=== PATIENT | female | born 1945 | race Caucasian/White ===

== ENCOUNTER 2017-08-05 14:20 | Inpatient (IN) | payer OTHER, MEDICARE ==
[~2017-08-05] VITALS: Ht 167.6 cm; Wt 86.7 kg
[~2017-08-05 14:20] MED LIST: ACET325 PO; CIPR500T2 PO; GABA300C3 PO; GEMF600T PO; HYDRA25 PO; LACT PO; LISI-586 PO; LOPE2 PO; MOBI15TA PO; POTA10TA2 PO
[2017-08-05 14:39] VITALS: BP 144/78; PULSE 70; RESP 20; TEMP 98.1; O2SAT 95
[2017-08-05 14:42] VITALS: BP 144/78; PULSE 70; RESP 20; TEMP 98.1; O2SAT 95
[2017-08-05 14:44] VITALS: BP_SYST 135; BP_SYST 144; BP_DIAS 78; BP_DIAS 83; PULSE 70; RESP 20; TEMP 98.1; O2SAT 95
[2017-08-05] MEDS ORDERED: SODIUM CHLORIDE 0.9% FLUSH 10 ML FLUSH IVF PRN (14:45)
[2017-08-05 15:35] LABS: INTERNATIONAL NORMALIZED RATIO 1.1 RATIO; PROTHROMBIN TIME - PATIENT 11.7 SEC (9.8-11.6)
[2017-08-05 15:40] LABS: BICARBONATE 28.1 MEQ/L (21.0-32.0); POTASSIUM 4.6 MEQ/L (3.5-5.1)
--- NOTE | 2017-08-05 15:53 | RADRPT ---
EXAM DATE/TIME: 08/05/2017 15:16 [facility] COMPARISON: No previous studies available for comparison. INDICATIONS : Left hip pain post fall today. MEDICAL HISTORY : hospice patient no other history available SURGICAL HISTORY : unobtainable ENCOUNTER: Initial ACUITY: 1 day PAIN SCORE: 10/10 LOCATION: Left hip FINDINGS: There is a subtle lucency in the left femoral neck without definite cortical step-off. The crosstable lateral exam does not adequately visualize the femoral neck region due to body habitus. Remaining os seous structures appear intact. Mild degenerative changes about the hips which are otherwise maintain ed. SI joints and pubic symphysis are intact. Surgical clips are seen in the mid pelvis. Soft tissues are otherwise unremarkable. CONCLUSION: 1. Subtle lucency without definite cortical step-off in the left femoral neck may be projectional alt katie a nondisplaced transcervical left femoral neck fracture cannot be excluded. This is inadequatel y visualized and therefore can't be confirmed on the crosstable lateral view. Consider frog-leg view for better visualization. Alternatively, CT examination may be performed as clinically warranted. Arnold Ledesma MD on August 05, 2017 at 15:44 Board Certified Radiologist. This report was verified electronically.
--- NOTE | 2017-08-05 15:54 | RADRPT ---
EXAM DATE/TIME: 08/05/2017 15:25 [facility] COMPARISON: CHEST SINGLE AP, March 12, 2015, 2:41. INDICATIONS : Patient fell today , pain in left hip . MEDICAL HISTORY : hospice patient no other history SURGICAL HISTORY : unobtainable ENCOUNTER: Initial ACUITY: 1 day PAIN SCORE: 3/10 LOCATION: Bilateral upper chest FINDINGS: Mild diffuse interstitial prominence similar to prior exam. No pneumothorax. No focal minimal opacity , left apical cap or effusion. Cardiomediastinal contours are stable. Old right rib fractures are not ed. Osseous structures are otherwise grossly intact. CONCLUSION: 1. Negative portable chest status post trauma. Arnold Ledesma MD on August 05, 2017 at 15:51 Board Certified Radiologist. This report was verified electronically.
--- NOTE | 2017-08-05 16:26 | RADRPT ---
EXAM DATE/TIME: 08/05/2017 15:48 [facility] COMPARISON: No previous studies available for comparison. INDICATIONS : Fall today evaluate fracture RADIATION DOSE: 63.50 CTDIvol (mGy) MEDICAL HISTORY : Cerebrovascular disease. Hypertension. Trigeminal neuralgia SURGICAL HISTORY : None. ENCOUNTER: Initial ACUITY: 1 day PAIN SCALE: 4/10 LOCATION: Left Hip TECHNIQUE: Volumetric scanning of the hip was performed. Using automated exposure control and ad justment of the mA and/or kV according to patient size, radiation dose was kept as low as reasonably achievable to obtain optimal diagnostic quality images. DICOM format image data is available electro nically for review and comparison. FINDINGS: BONES: Examination is abnormal. There is an impacted transcervical femoral neck fracture with com minuted nondisplaced fractures extending through the lesser and greater trochanters. JOINTS: Anatomic alignment of the hip joints bilaterally. Peak symphysis and SI joints are intact . SOFT TISSUES: Bladder is mildly distended and unremarkable. Uterus is unremarkable. Precise porti ons of bowel are within normal limits. No gross free air or pneumatosis. No significant free fluid or drainable fluid collection in the pelvis. Anterior pelvic surgical alix. CONCLUSION: 1. Impacted transcervical left femoral neck fracture with associated slightly comminuted nondisplaced trochanteric fractures. Arnold Ledesma MD on August 05, 2017 at 16:19 Board Certified Radiologist. This report was verified electronically.
[2017-08-05 16:27] LABS: AUTOMATED NEUTROPHIL # 10.2 TH/MM3 (1.8-7.7); BASOPHIL # 0.1 TH/MM3 (0-0.2); BASOPHIL % 0.4 % (0.0-2.0); EOSINOPHIL % 0.2 % (0.0-4.0); HEMATOCRIT 43.1 % (35.0-46.0); HEMO FLAGS DIFF FINAL; LYMPH % 8.5 % (9.0-44.0); MEAN CELL VOLUME 96.9 FL (80.0-100.0); MEAN CORPUSCULAR HEMOGLOBIN 32.5 PG (27.0-34.0); MEAN CORPUSCULAR HGB CONC 33.6 % (32.0-36.0); MONO % 4.8 % (0.0-8.0); NEUT % 86.1 % (16.0-70.0); PLATELET COUNT 165 TH/MM3 (150-450); RED BLOOD COUNT 4.45 MIL/MM3 (4.00-5.30); RED CELL DISTRIBUTION WIDTH 13.6 % (11.6-17.2); WHITE BLOOD COUNT 11.9 TH/MM3 (4.0-11.0)
--- NOTE | 2017-08-05 16:29 | RADRPT ---
EXAM DATE/TIME: 08/05/2017 15:43 [facility] COMPARISON: CT BRAIN W/O CONTRAST, March 10, 2015, 12:48. INDICATIONS : Fall today RADIATION DOSE: 69.15 CTDIvol (mGy) MEDICAL HISTORY : Cerebrovascular disease. Hypertension. Trigeminal neuralgia SURGICAL HISTORY : None. ENCOUNTER: Initial ACUITY: 1 day PAIN SCALE: 4/10 LOCATION: cranial TECHNIQUE: Multiple contiguous axial images were obtained of the head. Using automated exposure control and adj ustment of the mA and/or kV according to patient size, radiation dose was kept as low as reasonably a chievable to obtain optimal diagnostic quality images. DICOM format image data is available electro nically for review and comparison. FINDINGS: CEREBRUM: Moderate diffuse cerebral atrophy. Moderate periventricular and scattered white matter hypodensities progressed from prior examination and consistent with small vessel ischemic white matter demyelinatio n. The ventricles are normal for degree of atrophy. No evidence of midline shift, mass lesion, hemor rhage or acute infarction. No extra-axial fluid collections are seen. POSTERIOR FOSSA: The cerebellum and brainstem are intact. The 4th ventricle is midline. The cerebellopontine angle i s unremarkable. EXTRACRANIAL: The visualized portion of the orbits is intact. SKULL: The calvaria is intact. No evidence of skull fracture. CONCLUSION: 1. Senescent changes with progressive small vessel white matter ischemic demyelination. 2. No acute intracranial abnormality. Arnold Ledesma MD on August 05, 2017 at 16:24 Board Certified Radiologist. This report was verified electronically.
--- NOTE | 2017-08-05 16:55 | PD ---
HPI Chief Complaint: Fall Time Seen by Provider: 14:37 Travel History International Travel<30 days: No Contact w/Intl Traveler<30days: No Traveled to known affect area: No History of Present Illness HPI 72-year-old female came to the emergency room with history of a fall while she was trying to maneuver herself into the refer to later with a walker. Patient says this happened couple hours prior to coming to the emergency room. He is unable to get up. 911 was called and when EMS arrived patient was complaining of left hip pain. She has been unable to move her left leg because of the pain. Patient says she also hit her head when she fell. However she is awake and answering questions appropriately. Patient says she's hospice because she is dying but does not have history of cancer. She says she has history of multiple medical illness. Her vital signs were otherwise within normal limit. Patient says she uses a walker because she has a bad left knee. However because of her multiple medical conditions she has been told she is not a candidate for knee replacement surgery. [facility] Past Medical History Narrative Medical List of her past medical, surgical, social and family history is reviewed from the nursing note. Cerebrovascular Accident: Yes Hypertension: Yes Neurologic: Yes (TRIGEMINAL NEURALGIA) Respiratory: Yes Social History Alcohol Use: No Tobacco Use: Yes ("CHAIN SMOKER") Substance Use: No Allergies-Medications (Allergen,Severity, Reaction): Coded Allergies: oxytocin (Unverified Allergy, Unknown, 04/22/17) Comments List of her allergies reviewed from the nursing note. Reported Meds & Prescriptions Reported Meds & Active Scripts Active Narrative Medication List of her home medications reviewed from the nursing note. Review of Systems Except as stated in HPI: all other systems reviewed are Neg Physical Exam Narrative GENERAL: Awake, alert, elderly, looks older than her age, moderate distress SKIN: Focused skin assessment warm/dry. HEAD: Atraumatic. Normocephalic. EYES: Pupils equal and round. No scleral icterus. No injection or drainage. ENT: No nasal bleeding or discharge. Mucous membranes pink and moist. NECK: Trachea midline. No JVD. CARDIOVASCULAR: Regular rate and rhythm. No murmur appreciated. RESPIRATORY: No accessory muscle use. Clear to auscultation. Breath sounds equal bilaterally. GASTROINTESTINAL: Abdomen soft, non-tender, nondistended. Hepatic and splenic margins not palpable. MUSCULOSKELETAL: Left leg shortened and internally rotated. No clubbing. No cyanosis. No edema. Distal neurovascular is intact NEUROLOGICAL: Awake and alert. No obvious cranial nerve deficits. Motor grossly within normal limits. Normal speech. PSYCHIATRIC: Appropriate mood and affect; insight and judgment normal. Data Data Last Documented VS Orders Orders Electrocardiogram (08/05/17 14:37) Basic Metabolic Panel (Bmp) (08/05/17 14:37) Complete Blood Count With Diff (08/05/17 14:37) Prothrombin Time / Inr (Pt) (08/05/17 14:37) Chest, Single Ap (08/05/17 14:37) Ecg Monitoring (08/05/17 14:37) Bilateral Bp Monitoring (08/05/17 14:37) Iv Access Insert/Monitor (08/05/17 14:37) Oximetry (08/05/17 14:37) Oxygen Administration (08/05/17 14:37) Sodium Chloride 0.9% Flush (Ns Flush) (08/05/17 14:45) Hip, Uni(Ap&Lat) W Ap Pelvis (08/05/17 ) Ct Brain W/O Iv Contrast(Rout) (08/05/17 ) Ct Hip W/O Contrast (08/05/17 ) Admit Order (Ed Use Only) (08/05/17 17:39) Labs Laboratory Tests Test 08/05/17 15:00 08/05/17 16:10 Prothrombin Time 11.7 SEC Prothromb Time International Ratio 1.1 RATIO Blood Urea Nitrogen 17 MG/DL Creatinine 0.79 MG/DL Random Glucose 111 MG/DL Calcium Level 9.2 MG/DL Sodium Level 139 MEQ/L Potassium Level 4.6 MEQ/L Chloride Level 103 MEQ/L Carbon Dioxide Level 28.1 MEQ/L Anion Gap 8 MEQ/L Estimat Glomerular Filtration Rate 72 ML/MIN White Blood Count 11.9 TH/MM3 Red Blood Count 4.45 MIL/MM3 Hemoglobin 14.5 GM/DL Hematocrit 43.1 % Mean Corpuscular Volume 96.9 FL Mean Corpuscular Hemoglobin 32.5 PG Mean Corpuscular Hemoglobin Concent 33.6 % Red Cell Distribution Width 13.6 % Platelet Count 165 TH/MM3 Mean Platelet Volume 8.4 FL Neutrophils (%) (Auto) 86.1 % Lymphocytes (%) (Auto) 8.5 % Monocytes (%) (Auto) 4.8 % Eosinophils (%) (Auto) 0.2 % Basophils (%) (Auto) 0.4 % Neutrophils # (Auto) 10.2 TH/MM3 Lymphocytes # (Auto) 1.0 TH/MM3 Monocytes # (Auto) 0.6 TH/MM3 Eosinophils # (Auto) 0.0 TH/MM3 Basophils # (Auto) 0.1 TH/MM3 CBC Comment DIFF FINAL Differential Comment MDM Medical Decision Making Medical Screen Exam Complete: Yes Emergency Medical Condition: Yes Medical Record Reviewed: Yes Interpretation(s) Twelve-lead EKG was reviewed by me. Normal sinus rhythm, normal axis, nonspecific ST-T wave changes. Heart rate of 67 bpm. Differential Diagnosis Hip dislocation, hip fracture, intracranial bleed Narrative Course 4:50 PM awaiting for the blood test result and the x-ray. 5:30 PM x-ray had questionable fracture as per the radiologist recommended a CT. The of the hip showed impacted femoral neck fracture. Head CT was negative for any intracranial bleed. Patient will be admitted to the hospitalist. Spoke with Dr. Carl from [facility] and consulted him. Procedures EKG Prior to Arrival: No Physician Communication Physician Communication Dr. Carl Diagnosis Primary Impression: Femoral neck fracture Qualified Codes: S72.002A - Fracture of unspecified part of neck of left femur , initial encounter for closed fracture Additional Impression: Fall Qualified Codes: W19.XXXA - Unspecified fall, initial encounter Admitting Information Admitting Physician Requests: Admit Scripts Oxycodone HCl/Acetaminophen (Oxycodone-Acetaminophen 5-325) 5 Mg-325 Mg Tablet 1 TAB PO Q4HR Y for PAIN 1 TO 10 AND/OR AGITATION, #12 TAB 0 Refills Prov: Tyrell Alegre MD 08/08/17 Rivaroxaban (Xarelto) 10 Mg Tab 10 MG PO Q24H for Prevent Blood Clot for 20 Days, #20 TAB Prov: Belinda Miner 08/08/17 Chris Jules MD Aug 05, 2017 16:55
[2017-08-05] MEDS ORDERED: SODIUM CHLORIDE 0.9% FLUSH 10 ML FLUSH IV FLUSH PRN (17:45)
[2017-08-05] MEDS ORDERED: NALOXONE HCL 0.4 MG/ML AMP IV PUSH PRN (17:45)
--- NOTE | 2017-08-05 17:46 | HHI.HP ---
[facility] Service [facility] Primary Care Physician Josh Britt M.D. Admission Diagnosis hip fracture Diagnoses: Travel History International Travel<30 Days: No Contact w/Intl Traveler <30 Da: No Traveled to Known Affected Are: No History of Present Illness History from patient, ER physician communication, and review of medical records. Patient is an elderly lady. She is somewhat of a poor historian and also she does know her medical history. She seems to be in more of pain and distress which was mostly limiting her history. She reports that she fell down at home. She states she lives alone. Hospice nurse comes and see her at least once a week. She also does get other types of help at home although she is not able to specify what type particularly. She reports that she walks with her walker all the time because of her left knee pain. She today walked with her walker to words her refrigerator and try to get something out of the refrigerator. She believes in so doing, she lost her balance and fell. She states she fells backwards. She thinks she hit her head. She denies being on blood thinners. She states she hit hard and she has landed on her left hip as well. She states she laid there for about 2 hours. When her nurse came to visit the house, she screamed for help and ambulance was therefore called. Patient reports she is on home oxygen per prescription. But she states she doesn't take at all She reports that she has stage IV COPD. She thinks this was the reason why she is on hospice. She reports that she wondered surgery for her left knee pain but she was told she would not survive anesthesia because of her COPD. At present, she does want surgery for her left hip fracture. During my conversation with her, patient tells me that she is a DNR and she wants to make sure that we honor this. She does have a daughter in town. Apart from the above, patient denies any recent fever/nausea/vomiting/diarrhea/ urinary burning or pain on urination. She denies any hematemesis/hematochezia/melena/hematuria. She denies any episodes of chest pain/palpitations/dizziness/syncopal episodes. She reports chronic dyspnea on exertion and chronic left knee pain. Review of Systems Except as stated in HPI: all other systems reviewed are Neg Past Family Social History Past Medical History Stage IV COPD. Reports she was prescribed home oxygen but that she is not compliant with it. Chronic peripheral edema per patient. She states she is seeing a heart doctor because of this. Likely she has CHF. History of CVA. Reports her residual is that she keeps dropping things from her left hand at some times. Chronic tobacco abuse. Reports she smokes way more than a pack a day at present. History of trigeminal neuralgia Hypertension Hyperlipidemia Past Surgical History Not able to recall all the surgeries. States she had many. However she does remember she had cholecystectomy and possibly appendectomy. Reported Medications Patient thinks that she might have a list of her medications in her purse. But later reported to call hospice nurse to confirm. Allergies: Coded Allergies: oxytocin (Unverified Allergy, Unknown, 04/22/17) Family History Denies any family history of any medical conditions. Social History States she currently smokes way more than a pack a day. Denies any alcohol abuse or drug abuse. Lives by herself. Apparently she is still driving. Physical Exam Vital Signs Vital Signs Date Time Temp Pulse Resp B/P (MAP) Pulse Ox O2 Delivery O2 Flow Rate FiO2 08/05/17 14:44 98.1 70 20 144/78 (100) 95 Room Air 2.00 135/83 (100) 08/05/17 14:42 98.1 70 20 144/78 (100) 95 Nasal Cannula 2.00 08/05/17 14:42 98.1 70 20 144/78 (100) 95 Nasal Cannula 2.00 08/05/17 14:42 Room Air 08/05/17 14:41 70 20 95 Nasal Cannula 2.00 08/05/17 14:39 98.1 70 20 144/78 (100) 95 Physical Exam GENERAL: This is a well-nourished, well-developed patient, in moderate distress from pain. Also looks to be dyspneic on conversation. SKIN: No rashes, ecchymoses or lesions. Cool and dry. HEAD: Atraumatic. Normocephalic. No temporal or scalp tenderness. EYES: No scleral icterus. No injection or drainage. ENT: Nose without bleeding, purulent drainage or septal hematoma.. Airway patent. NECK: Trachea midline. No JVD CARDIOVASCULAR: Regular rate and rhythm without murmurs, gallops, or rubs. RESPIRATORY: Decreased air entry bilaterally. Poor inspiratory effort. GASTROINTESTINAL: Abdomen soft, non-tender, nondistended. No guarding. MUSCULOSKELETAL: Extremities without clubbing, cyanosis, or edema. No calf tenderness. Left lower extremity shorter than the right with mild internal rotation NEUROLOGICAL: Awake and alert. Normal speech. Laboratory Laboratory Tests Test 08/05/17 15:00 08/05/17 16:10 Prothrombin Time 11.7 Prothromb Time International Ratio 1.1 Blood Urea Nitrogen 17 Creatinine 0.79 Random Glucose 111 Calcium Level 9.2 Sodium Level 139 Potassium Level 4.6 Chloride Level 103 Carbon Dioxide Level 28.1 Anion Gap 8 Estimat Glomerular Filtration Rate 72 White Blood Count 11.9 Red Blood Count 4.45 Hemoglobin 14.5 Hematocrit 43.1 Mean Corpuscular Volume 96.9 Mean Corpuscular Hemoglobin 32.5 Mean Corpuscular Hemoglobin Concent 33.6 Red Cell Distribution Width 13.6 Platelet Count 165 Mean Platelet Volume 8.4 Neutrophils (%) (Auto) 86.1 Lymphocytes (%) (Auto) 8.5 Monocytes (%) (Auto) 4.8 Eosinophils (%) (Auto) 0.2 Basophils (%) (Auto) 0.4 Neutrophils # (Auto) 10.2 Lymphocytes # (Auto) 1.0 Monocytes # (Auto) 0.6 Eosinophils # (Auto) 0.0 Basophils # (Auto) 0.1 CBC Comment DIFF FINAL Differential Comment Result Diagram: 08/05/17 1610 08/05/17 1500 Imaging Last 48 hours Impressions Chest X-Ray 08/05/17 1437 Signed Impressions: Service Date/Time: Saturday, August 05, 2017 15:25 - CONCLUSION: 1. Negative portable chest status post trauma. Arnold Ledesma MD Lower Extremity CT 08/05/17 0000 Signed Impressions: Service Date/Time: Saturday, August 05, 2017 15:48 - CONCLUSION: 1. Impacted transcervical left femoral neck fracture with associated slightly comminuted nondisplaced trochanteric fractures. Arnold Ledesma MD Hip and Pelvis X-Ray 08/05/17 0000 Signed Impressions: Service Date/Time: Saturday, August 05, 2017 15:16 - CONCLUSION: 1. Subtle lucency without definite cortical step-off in the left femoral neck may be projectional although a nondisplaced transcervical left femoral neck fracture cannot be excluded. This is inadequately visualized and therefore can't be confirmed on the crosstable lateral view. Consider frog-leg view for better visualization. Alternatively, CT examination may be performed as clinically warranted. Arnold Ledesma MD Head CT 08/05/17 0000 Signed Impressions: Service Date/Time: Saturday, August 05, 2017 15:43 - CONCLUSION: 1. Senescent changes with progressive small vessel white matter ischemic demyelination. 2. No acute intracranial abnormality. MD Carmel Austin VTE Risk Assessment Carmel VTE Risk Assessment: Mod/High Risk (score >= 2) Caprini Risk Assessment Model Point Value = 1 Point Value = 2 Point Value = 3 Point Value = 5 Age 41-60 Minor surgery BMI > 25 kg/m2 Swollen legs Varicose veins or History of unexplained or recurrent spontaneous Oral contraceptives or hormone replacement Sepsis (< 1 month) Serious lung disease, including pneumonia (< 1 month) Abnormal pulmonary function Acute myocardial infarction Congestive heart failure (< 1 month) History of inflammatory bowel disease Medical patient at bed rest Age 61-74 Arthroscopic surgery Major open surgery (> 45 min) Laparoscopic surgery (> 45 min) Malignancy Confined to bed (> 72 hours) Immobilizing plaster cast Central venous access Age >= 75 History of VTE Family history of VTE Factor V Leiden Prothrombin [id number] Lupus anticoagulant Anticardiolipin antibodies Elevated serum homocysteine Heparin-induced thrombocytopenia Other congenital or acquired thrombophilia Stroke (< 1 month) Elective arthroplasty Hip, pelvis, or leg fracture Acute spinal cord injury (< 1 month) Prophylaxis Regimen Total Risk Factor Score Risk Level Prophylaxis Regimen 0-1 Low Early ambulation 2 Moderate Order ONE of the following: *Sequential Compression Device (SCD) *Heparin 5000 units SQ BID 3-4 Higher Order ONE of the following medications: *Heparin 5000 units SQ TID *Enoxaparin/Lovenox 40 mg SQ daily (WT < 150 kg, CrCl > 30 mL/min) *Enoxaparin/Lovenox 30 mg SQ daily (WT < 150 kg, CrCl > 10-29 mL/min) *Enoxaparin/Lovenox 30 mg SQ BID (WT < 150 kg, CrCl > 30 mL/min) AND/OR *Sequential Compression Device (SCD) 5 or more Highest Order ONE of the following medications: *Heparin 5000 units SQ TID (Preferred with Epidurals) *Enoxaparin/Lovenox 40 mg SQ daily (WT < 150 kg, CrCl > 30 mL/min) *Enoxaparin/Lovenox 30 mg SQ daily (WT < 150 kg, CrCl > 10-29 mL/min) *Enoxaparin/Lovenox 30 mg SQ BID (WT < 150 kg, CrCl > 30 mL/min) AND *Sequential Compression Device (SCD) Assessment and Plan Assessment and Plan Impression: Status post fall Left femoral neck fracture secondary to fall Leukocytosis with left shift likely secondary to acute stress Comorbid conditions: Stage IV COPD. Reports she was prescribed home oxygen but that she is not compliant with it. Chronic peripheral edema per patient. She states she is seeing a heart doctor because of this. Likely she has CHF. History of CVA. Reports her residual is that she keeps dropping things from her left hand at some times. Chronic tobacco abuse. Reports she smokes way more than a pack a day at present. History of trigeminal neuralgia Hypertension Hyperlipidemia Plan: Patient's case was discussed with orthopedics DrArnol by ER physician. We'll keep patient nothing by mouth after midnight. Feed patient now. Pain control with morphine 2 g IV every 3 hours when necessary for pain greater than 5. To obtain patient's med reconciliation from hospice service. Orders have been written for nursing staff to do so. DVT prophylaxis with SCD for now. Chemical prophylaxis postoperatively. GI prophylaxis with ranitidine. Discussed Condition With patient, ER physician, nursing staff Physician Certification 2 Midnight Certification Type: Admission for Inpatient Services Order for Inpatient Services The services are ordered in accordance with Medicare regulations or non- Medicare payer requirements, as applicable. In the case of services not specified as inpatient-only, they are appropriately provided as inpatient services in accordance with the 2-midnight benchmark. Estimated LOS (days): 2 days is the estimated time the patient will need to remain in the hospital, assuming treatment plan goals are met and no additional complications. Post-Hospital Plan: Home Khadijah Vo MD Aug 05, 2017 17:46
[2017-08-05] MEDS ORDERED: ONDANSETRON HCL 4 MG/2 ML VIAL IV PUSH PRN (18:00)
[2017-08-05 18:32] VITALS: BP 143/69
[2017-08-05 19:22] VITALS: BP 174/86; PULSE 93; RESP 20; TEMP 98.5; O2SAT 94
[2017-08-05] MEDS: FAMOTIDINE 20 MG TAB PO SCH (21:15)
[2017-08-05] MEDS: MORPHINE SULFATE 2 MG/ML INJ IV PUSH PRN (21:17)
[2017-08-05] MEDS: SODIUM CHLORIDE 0.9% FLUSH 10 ML FLUSH IV FLUSH SCH (21:19)
--- NOTE | 2017-08-05 22:31 | PD.CONS ---
cc: Ras Carl MD [facility] Service Orthopedic Surgeons Consult Requested By Dr. Vo Reason for Consult Evaluation of left hip fracture Primary Care Physician Josh Britt M.D. Admission Diagnosis hip fracture Diagnoses: (1) Intertrochanteric fracture of left femur Diagnosis: Principal (2) COPD (chronic obstructive pulmonary disease) (3) History of CVA (cerebrovascular accident) (4) Tobacco dependence Chief Complaint: Left hip pain History of Present Illness 72-year-old female came to the emergency room with history of a fall while she was trying to maneuver herself into the refer to later with a walker. Patient says this happened couple hours prior to coming to the emergency room. He is unable to get up. 911 was called and when EMS arrived patient was complaining of left hip pain. She has been unable to move her left leg because of the pain. Patient says she also hit her head when she fell. However she is awake and answering questions appropriately. She is a poor historian and "can't remember" all of her medical illnesses or surgeries. Patient says she's hospice because she is dying but does not have history of cancer. She says she has history of multiple medical illness. Her vital signs were otherwise within normal limit. Patient says she uses a walker because she has a bad left knee. However because of her multiple medical conditions she has been told she is not a candidate for knee replacement surgery. The patient denies other extremity injury at the time of her fall. X-rays and a CT scan were completed which revealed a basicervical fracture of the proximal femur with extension into the greater and lesser trochanters. Orthopedic consultation was therefore requested. Review of Systems Reviewed and well outlined in the medical record Past Family Social History Past Medical History Stage IV COPD. Reports she was prescribed home oxygen but that she is not compliant with it. Chronic peripheral edema per patient. She states she is seeing a heart doctor because of this. Likely she has CHF. History of CVA. Reports her residual is that she keeps dropping things from her left hand at some times. Chronic tobacco abuse. Reports she smokes way more than a pack a day at present. History of trigeminal neuralgia Hypertension Hyperlipidemia Past Surgical History Not able to recall all the surgeries. States she had many. However she does remember she had cholecystectomy and possibly appendectomy. Allergies: Coded Allergies: oxytocin (Unverified Allergy, Unknown, 04/22/17) Active Ordered Medications Current Medications Medications (Trade) Dose Ordered Sig/Tatiana Route Start Time Stop Time Status Last Admin (NS Flush) 2 ml UNSCH PRN IV FLUSH 08/05/17 17:45 (NS Flush) 2 ml BID IV FLUSH 08/05/17 21:00 08/05/17 21:19 (Narcan Inj) 0.4 mg UNSCH PRN IV PUSH 08/05/17 17:45 (Morphine Inj) 2 mg Q3H PRN IV PUSH 08/05/17 18:00 08/05/17 21:17 (Zofran Inj) 4 mg Q6HR PRN IV PUSH 08/05/17 18:00 (Pepcid) 20 mg Q12HR PO 08/05/17 21:00 08/05/17 21:15 Reported Meds & Active Scripts Active Active Prescriptions or Reported Medications Unobtainable Family History Denies any family history of any medical conditions. Social History States she currently smokes way more than a pack a day. Denies any alcohol abuse or drug abuse. Lives by herself. Apparently she is still driving. Physical Exam Vital Signs Vital Signs Date Time Temp Pulse Resp B/P (MAP) Pulse Ox O2 Delivery O2 Flow Rate FiO2 08/05/17 19:22 98.5 93 20 174/86 (115) 94 08/05/17 18:32 84 20 143/69 (93) 94 Nasal Cannula 2.00 08/05/17 14:44 98.1 70 20 144/78 (100) 95 Room Air 2.00 135/83 (100) 08/05/17 14:42 98.1 70 20 144/78 (100) 95 Nasal Cannula 2.00 08/05/17 14:42 98.1 70 20 144/78 (100) 95 Nasal Cannula 2.00 08/05/17 14:42 Room Air 08/05/17 14:41 70 20 95 Nasal Cannula 2.00 08/05/17 14:39 98.1 70 20 144/78 (100) 95 Physical Exam The patient is awake and alert and answers questions properly. She complains of pain in the left hip with any movement. There is no overlying skin change. There is mild swelling. She holds the left lower extremity in a slightly flexed and internal rotated position. It is shortened. She is able to move her ankle and toes freely and relates normal sensation. She has good pulses distally. Laboratory Laboratory Tests Test 08/05/17 15:00 08/05/17 16:10 Prothrombin Time 11.7 Prothromb Time International Ratio 1.1 Blood Urea Nitrogen 17 Creatinine 0.79 Random Glucose 111 Calcium Level 9.2 Sodium Level 139 Potassium Level 4.6 Chloride Level 103 Carbon Dioxide Level 28.1 Anion Gap 8 Estimat Glomerular Filtration Rate 72 White Blood Count 11.9 Red Blood Count 4.45 Hemoglobin 14.5 Hematocrit 43.1 Mean Corpuscular Volume 96.9 Mean Corpuscular Hemoglobin 32.5 Mean Corpuscular Hemoglobin Concent 33.6 Red Cell Distribution Width 13.6 Platelet Count 165 Mean Platelet Volume 8.4 Neutrophils (%) (Auto) 86.1 Lymphocytes (%) (Auto) 8.5 Monocytes (%) (Auto) 4.8 Eosinophils (%) (Auto) 0.2 Basophils (%) (Auto) 0.4 Neutrophils # (Auto) 10.2 Lymphocytes # (Auto) 1.0 Monocytes # (Auto) 0.6 Eosinophils # (Auto) 0.0 Basophils # (Auto) 0.1 CBC Comment DIFF FINAL Differential Comment Result Diagram: 08/05/17 1610 08/05/17 1500 Imaging Last 48 hours Impressions Chest X-Ray 08/05/17 1437 Signed Impressions: Service Date/Time: Saturday, August 05, 2017 15:25 - CONCLUSION: 1. Negative portable chest status post trauma. Arnold Ledesma MD Lower Extremity CT 08/05/17 0000 Signed Impressions: Service Date/Time: Saturday, August 05, 2017 15:48 - CONCLUSION: 1. Impacted transcervical left femoral neck fracture with associated slightly comminuted nondisplaced trochanteric fractures. Arnold Ledesma MD Hip and Pelvis X-Ray 08/05/17 0000 Signed Impressions: Service Date/Time: Saturday, August 05, 2017 15:16 - CONCLUSION: 1. Subtle lucency without definite cortical step-off in the left femoral neck may be projectional although a nondisplaced transcervical left femoral neck fracture cannot be excluded. This is inadequately visualized and therefore can't be confirmed on the crosstable lateral view. Consider frog-leg view for better visualization. Alternatively, CT examination may be performed as clinically warranted. Arnold Ledesma MD Head CT 08/05/17 0000 Signed Impressions: Service Date/Time: Saturday, August 05, 2017 15:43 - CONCLUSION: 1. Senescent changes with progressive small vessel white matter ischemic demyelination. 2. No acute intracranial abnormality. Arnold Ledesma MD Assessment & Plan Problem List: (1) Intertrochanteric fracture of left femur ICD Codes: S72.142A - Displaced intertrochanteric fracture of left femur, initial encounter for closed fracture (2) COPD (chronic obstructive pulmonary disease) ICD Codes: J44.9 - Chronic obstructive pulmonary disease, unspecified (3) History of CVA (cerebrovascular accident) ICD Codes: Z86.73 - Personal history of transient ischemic attack (TIA), and cerebral infarction without residual deficits (4) Tobacco dependence ICD Codes: F17.200 - Nicotine dependence, unspecified, uncomplicated Assessment and Plan The findings were discussed. The options for treatment both operative and nonoperative were discussed. The patient is at increased risk for surgery based upon her COPD and significant osteoporotic bone as well as the fracture pattern. Given the alternatives, the patient does wish to proceed with surgical management for pain control and mobilization. She understands her DNR status would not be applicable in the operating room setting. The nature of the procedure, the risks, the expected benefits, as well as the postoperative expectations have been discussed with her in detail. In addition, the alternatives to treatment and risk of same were discussed. She acknowledges full understanding and consents to it. Ras Carl MD Aug 05, 2017 22:31
[2017-08-05] MEDS ORDERED: ceFAZolin 2 GM PREMIX 50 ML IV SCH (22:45)
[2017-08-06] VITALS (7 sets, daily range): BP systolic 168–177; BP diastolic 81–96; PULSE 100–111; RESP 17–19; TEMP 96.7–99.6; O2SAT 93–96
[2017-08-06] MEDS: MORPHINE SULFATE 2 MG/ML INJ IV PUSH PRN ×3 (01:46→09:09)
--- NOTE | 2017-08-06 05:17 | EKG ---
Date Performed: 08/05/2017 Time Performed: 14:57:59 PTAGE: 72 years EKG: Baseline artifact present Sinus rhythm INCOMPLETE RIGHT BUNDLE BRANCH BLOCK MINIMAL ST DEPRESSION BORDERLINE ECG Compared to prior electroc ardiogram, rate has increased . PREVIOUS TRACING : 03/11/2015 11.26 DOCTOR: Lloyd Aragon Interpretating Date/Time 08/06/2017 05:17:06
[2017-08-06 07:42] LABS: AUTOMATED NEUTROPHIL # 8.2 TH/MM3 (1.8-7.7); BASOPHIL % 0.3 % (0.0-2.0); EOSINOPHIL % 0.1 % (0.0-4.0); HEMATOCRIT 41.5 % (35.0-46.0); HEMO FLAGS DIFF FINAL; LYMPH % 7.8 % (9.0-44.0); LYMPHOCYTE # 0.8 TH/MM3 (1.0-4.8); MEAN CORPUSCULAR HEMOGLOBIN 33.4 PG (27.0-34.0); MEAN CORPUSCULAR HGB CONC 34.5 % (32.0-36.0); MONO % 7.6 % (0.0-8.0); NEUT % 84.2 % (16.0-70.0); PLATELET COUNT 148 TH/MM3 (150-450); RED BLOOD COUNT 4.28 MIL/MM3 (4.00-5.30); WHITE BLOOD COUNT 9.7 TH/MM3 (4.0-11.0)
[2017-08-06 07:47] LABS: PROTHROMBIN TIME - PATIENT 10.7 SEC (9.8-11.6)
[2017-08-06 08:14] LABS: BICARBONATE 30.1 MEQ/L (21.0-32.0); POTASSIUM 3.5 MEQ/L (3.5-5.1)
[2017-08-06] MEDS: SODIUM CHLORIDE 0.9% FLUSH 10 ML FLUSH IV FLUSH SCH ×2 (09:00→22:08)
[2017-08-06] MEDS: FAMOTIDINE 20 MG TAB PO SCH ×2 (09:12→22:06)
--- NOTE | 2017-08-06 09:19 | HHI.PR ---
Subjective Remarks This is a pleasant 72 y/o Female status post fall at home, she has Hospice Home , left hip pain on Home Oxygen, due to Stage IV COPD, she is DNR, History of CVA, Hypertension, Hyperlipidemia I was called by his Nurse Miss Flores I came to the floor to clear the situation, her Daughter Miss Lorelei Davenport she is concerned about her Mother and not the risk for surgery I talked with her she wants to ask for details about her Surgery this questions are only possible to answer by her Primary surgical Team a call placed to Doctor Meseret, she will discuss details with Orthopedic surgery, discussed with patient because she is able to take her own decision and when discussed with the patient about her Daughter concerns, she say "I will be fine". at this time the patient wants to proceed with Surgery and her POA will help if the patient is not able to take her own decisions. Objective Vital Signs Date Time Temp Pulse Resp B/P (MAP) Pulse Ox O2 Delivery O2 Flow Rate FiO2 08/06/17 07:39 97.7 111 19 172/81 (111) 95 08/06/17 04:25 99.6 105 18 175/95 (121) 94 08/06/17 01:25 99.3 102 17 169/81 (110) 93 08/05/17 19:22 98.5 93 20 174/86 (115) 94 08/05/17 18:32 84 20 143/69 (93) 94 Nasal Cannula 2.00 08/05/17 14:44 98.1 70 20 144/78 (100) 95 Room Air 2.00 135/83 (100) 08/05/17 14:42 98.1 70 20 144/78 (100) 95 Nasal Cannula 2.00 08/05/17 14:42 98.1 70 20 144/78 (100) 95 Nasal Cannula 2.00 08/05/17 14:42 Room Air 08/05/17 14:41 70 20 95 Nasal Cannula 2.00 08/05/17 14:39 98.1 70 20 144/78 (100) 95 I/O 08/05/17 08/05/17 08/05/17 08/06/17 08/06/17 08/06/17 07:00 15:00 23:00 07:00 15:00 23:00 Intake Total 120 ml 0 ml Balance 120 ml 0 ml Intake Oral 120 ml 0 ml # Voids 3 2 # Bowel Movements 0 0 Result Diagram: 08/06/17 0636 08/06/17 0636 Imaging Last Impressions Chest X-Ray 08/05/17 1437 Signed Impressions: Service Date/Time: Saturday, August 05, 2017 15:25 - CONCLUSION: 1. Negative portable chest status post trauma. Arnold Ledesma MD Lower Extremity CT 08/05/17 0000 Signed Impressions: Service Date/Time: Saturday, August 05, 2017 15:48 - CONCLUSION: 1. Impacted transcervical left femoral neck fracture with associated slightly comminuted nondisplaced trochanteric fractures. Arnold Ledesma MD Hip and Pelvis X-Ray 08/05/17 0000 Signed Impressions: Service Date/Time: Saturday, August 05, 2017 15:16 - CONCLUSION: 1. Subtle lucency without definite cortical step-off in the left femoral neck may be projectional although a nondisplaced transcervical left femoral neck fracture cannot be excluded. This is inadequately visualized and therefore can't be confirmed on the crosstable lateral view. Consider frog-leg view for better visualization. Alternatively, CT examination may be performed as clinically warranted. Arnold Ledesma MD Head CT 08/05/17 0000 Signed Impressions: Service Date/Time: Saturday, August 05, 2017 15:43 - CONCLUSION: 1. Senescent changes with progressive small vessel white matter ischemic demyelination. 2. No acute intracranial abnormality. Arnold Ledesma MD Procedures None Other Results Laboratory Tests Test 08/06/17 06:36 White Blood Count 9.7 TH/MM3 Red Blood Count 4.28 MIL/MM3 Hemoglobin 14.3 GM/DL Hematocrit 41.5 % Mean Corpuscular Volume 97.0 FL Mean Corpuscular Hemoglobin 33.4 PG Mean Corpuscular Hemoglobin Concent 34.5 % Red Cell Distribution Width 13.0 % Platelet Count 148 TH/MM3 Mean Platelet Volume 9.0 FL Neutrophils (%) (Auto) 84.2 % Lymphocytes (%) (Auto) 7.8 % Monocytes (%) (Auto) 7.6 % Eosinophils (%) (Auto) 0.1 % Basophils (%) (Auto) 0.3 % Neutrophils # (Auto) 8.2 TH/MM3 Lymphocytes # (Auto) 0.8 TH/MM3 Monocytes # (Auto) 0.7 TH/MM3 Eosinophils # (Auto) 0.0 TH/MM3 Basophils # (Auto) 0.0 TH/MM3 CBC Comment DIFF FINAL Differential Comment Prothrombin Time 10.7 SEC Prothromb Time International Ratio 1.0 RATIO Blood Urea Nitrogen 13 MG/DL Creatinine 0.63 MG/DL Random Glucose 140 MG/DL Calcium Level 8.9 MG/DL Sodium Level 140 MEQ/L Potassium Level 3.5 MEQ/L Chloride Level 103 MEQ/L Carbon Dioxide Level 30.1 MEQ/L Anion Gap 7 MEQ/L Estimat Glomerular Filtration Rate 93 ML/MIN Objective Remarks GENERAL: SKIN: No rashes, ecchymoses or lesions. Cool and dry. HEAD: Atraumatic. Normocephalic. No temporal or scalp tenderness. EYES: No scleral icterus. No injection or drainage. ENT: Nose without bleeding, purulent drainage or septal hematoma.. Airway patent. NECK: Trachea midline. No JVD CARDIOVASCULAR: Regular rate and rhythm without murmurs, gallops, or rubs. RESPIRATORY: Decreased air entry bilaterally. Poor inspiratory effort. GASTROINTESTINAL: Abdomen soft, non-tender, nondistended. No guarding. MUSCULOSKELETAL: Extremities without clubbing, cyanosis, or edema. No calf tenderness. Left lower extremity shorter than the right with mild internal rotation NEUROLOGICAL: Awake and alert. Normal speech. Medications and IVs Current Medications Medications (Trade) Dose Ordered Sig/Tatiana Route Start Time Stop Time Status Last Admin (NS Flush) 2 ml UNSCH PRN IV FLUSH 08/05/17 17:45 (NS Flush) 2 ml BID IV FLUSH 08/05/17 21:00 08/05/17 21:19 (Narcan Inj) 0.4 mg UNSCH PRN IV PUSH 08/05/17 17:45 (Morphine Inj) 2 mg Q3H PRN IV PUSH 08/05/17 18:00 08/06/17 05:45 (Zofran Inj) 4 mg Q6HR PRN IV PUSH 08/05/17 18:00 (Pepcid) 20 mg Q12HR PO 08/05/17 21:00 08/05/17 21:15 Cefazolin Sodium/ Dextrose 50 ml @ 100 mls/hr PAINT PROCESS ENGINEER IV 08/05/17 22:45 08/08/17 22:44 A/P Assessment and Plan 1. Status post Fall 2. Left Femoral Neck Fracture secondary to fall 3. Leukocytosis with left shift likely reactive 4. Stage IV COPD on home oxygen 5. CVA by history 6. Chronic Tobacco dependence more than one pack daily strongly recommended to stop smoking 7. Hypertension controlled. 8. Hyperlipidemia to continue home medicines. May need Intensive Care management after procedure DVT prophylaxis with SCD for now. Chemical prophylaxis postoperatively. GI prophylaxis with ranitidine. Discharge Planning Once cleared by Specialist Tyrell Alegre MD Aug 06, 2017 09:19
[2017-08-06] MEDS ORDERED: GENTAMICIN SULFATE 80 MG/2 ML VIAL ONE (13:19)
[2017-08-06] MEDS ORDERED: INSULIN HUMAN REGULAR 1,000 UNITS/10 ML VIAL SQ PRN (13:45)
[2017-08-06] MEDS ORDERED: METOPROLOL TARTRATE 25 MG TAB PO PRN (13:45)
[2017-08-06] MEDS ORDERED: LACTATED RINGER'S 1000 ML IV PRN (13:45)
[2017-08-06] MEDS ORDERED: CHLORHEXIDINE GLUCONATE 2 % 1 PACK (2 CLOTHS) TOPICAL PRN (13:45)
[2017-08-06] MEDS ORDERED: POVIDONE IODINE 5% (ANTISEPSIS KIT) 4 APPLICATIONS EACH NARE PRN (13:45)
[2017-08-06] MEDS ORDERED: SODIUM CHLORID 0.9% 500 ML IV PRN (13:45)
[2017-08-06] MEDS ORDERED: OMEP20TA93 PO (14:52)
[2017-08-06] MEDS ORDERED: MELA5 PO (14:52)
[2017-08-06] MEDS ORDERED: GABA300C3 PO (14:52)
[2017-08-06] MEDS ORDERED: METH1TAB2 PO (14:52)
[2017-08-06] MEDS ORDERED: ALBU0.08 NEB (14:52)
[2017-08-06] MEDS ORDERED: AMLO5TAB2 PO (14:52)
[2017-08-06] MEDS ORDERED: DICY20TA10 PO (14:52)
[2017-08-06] MEDS ORDERED: OXYC1TAB63 (14:52)
[2017-08-06] MEDS ORDERED: CARB200T PO (14:52)
[2017-08-06] MEDS ORDERED: METO50TA PO (14:52)
[2017-08-06] MEDS ORDERED: ASPI81CH6 CHEW (14:52)
[2017-08-06] MEDS ORDERED: GABA600T PO (14:52)
[2017-08-06] MEDS ORDERED: PHENYLEPHRINE HCL 10 MG/ML VIAL ONE (15:04)
[2017-08-06] MEDS ORDERED: PROPOFOL 500 MG/50 ML INJ 50 ML ONE (15:04)
[2017-08-06] MEDS ORDERED: hydrALAZINE HCL 20 MG/ML VIAL IV PUSH PRN (16:30)
--- NOTE | 2017-08-06 16:56 | PD.OP ---
cc: Ras Carl MD Operative Report Date of Surgery: Aug 06, 2017 Preoperative Diagnosis: (1) Intertrochanteric fracture of left femur Postoperative Diagnosis: (1) Intertrochanteric fracture of left femur Procedure: Close reduction with trochanteric nail fixation left proximal femur fracture Implants: Synthes trochanteric nail Anesthesia: Spinal Surgeon: Ras Carl Hat Maker(s): Belinda Miner PA-C ([place]) The surgical procedure was assisted by my physician's campaign assistant. Her presence was necessary throughout the case for manipulation and positioning of the surgical extremity. My PA was assisting me throughout the duration of this procedure. The skill set of the physician campaign assistant was medically necessary to complete this procedure. During the surgical case the surgical forceps fabricator was working at the back table and the physician campaign assistant was directly assisting me. Operation and Findings: Indications: This 72-year-old female fell injuring her left hip. She had pain and inability ambulate. She normally is ambulatory with a walker secondary to severe osteoarthritis of her left knee. She has multiple medical problems and currently is on hospice secondary to advanced COPD. X-rays revealed a displaced intertrochanteric fracture of left proximal femur. The options for treatment with operative and nonoperative were discussed as well as the risks and benefits of same. She has been medically cleared and presents for internal fixation. Procedure and findings: The patient was taken to the operative suite and after undergoing an adequate level of general anesthesia was placed supine on the fracture table. The left lower extremity was positioned in skin traction and the preoperative reduction checked in both the AP and lateral planes with the C- arm. It was then prepped and draped in usual sterile fashion with alcohol and Hibiclens. Preoperative antibiotic consisted of Ancef 2 g IV. An incision was made over the lateral aspect of the hip extending from the greater trochanter for distance approximately 3 cm. This was carried down to skin and subcutaneous tense tissue with a knife. Hemostasis was obtained electrocautery. The muscular fascia was incised and split longitudinally. An entry point was selected at the tip of the greater trochanter. This was entered with a threaded guidepin. The position was checked in both the AP and lateral planes with the C-arm. It was subsequently overdrilled. An 12 x 130 Synthes intermediate trochanteric nail was then impacted in the place. Utilizing the outrigger device an additional incision was made distally. A threaded guidepin was advanced through the lateral cortex, across the nail, into the femoral neck and seated in the subchondral bone of the femoral head. The position was checked in both the AP and lateral planes with the C-arm. A measurement was then made. A 90 helical blade was selected. The lateral cortex was overdrilled. The helical blade was then impacted in the place. The locking mechanism was then seated proximally. Utilizing the outrigger device the same distal incision was utilized for distal fixation.. A trocar was placed against the lateral cortex. The distal interlocking screw hole was drilled and the appropriate length screw placed. The position of the fracture reduction and placement of the internal fixation were checked in both the AP and lateral planes with the C-arm. The wounds were then thoroughly irrigated. They were closed in layers utilizing 0 Vicryl suture on the muscular fascia, 2- 0 Vicryl suture on the subcutaneous tense tissue and alix on the skin. Sterile dressings were applied, the patient was awakened, transferred to the hospital bed and taken to the recovery room in stable condition. Estimated blood loss: 100 cc Complications: None Ras Carl MD Aug 06, 2017 16:56
[2017-08-06] MEDS ORDERED: POVIDONE IODINE 10% SOLN 118 ML BOTTLE TOPICAL PRN (17:00)
[2017-08-06] MEDS ORDERED: SENNOSIDES 8.6 MG TAB PO PRN (17:00)
[2017-08-06] MEDS ORDERED: ALUMINUM/MAGNESIUM/SIMETH 30 ML CUP PO PRN (17:00)
[2017-08-06] MEDS ORDERED: Post-op Orders (for Pharmacy) MISC XX ONE (17:00)
[2017-08-06] MEDS ORDERED: SODIUM CHLORIDE 0.9% FLUSH 10 ML FLUSH IV FLUSH PRN (17:00)
[2017-08-06] MEDS ORDERED: MAGNESIUM HYDROXIDE SUSP 30 ML CUP PO PRN (17:00)
[2017-08-06] MEDS ORDERED: LACTULOSE SYRUP 20 GM/30 ML CUP PO PRN (17:00)
[2017-08-06] MEDS ORDERED: ACETAMINOPHEN 325 MG TAB PO PRN (17:00)
[2017-08-06] MEDS ORDERED: ACETAMINOPHEN/HYDROcodone 325 MG/5 MG TAB PO PRN (17:00)
[2017-08-06] MEDS ORDERED: ONDANSETRON HCL 4 MG/2 ML VIAL IVP PRN (17:00)
[2017-08-06] MEDS ORDERED: BISACODYL 10 MG SUPP RECTAL PRN (17:00)
[2017-08-06] MEDS ORDERED: *morphine SULFATE 8 MG/ML PERIprocedure ONLY ONE (17:30)
[2017-08-06] MEDS ORDERED: *HYDROmorphone PF 1 MG VIAL PERIprocedural Use ONLY ONE (17:57)
[2017-08-06] MEDS ORDERED: *LABETALOL HCL 100 MG/20 ML VIAL PERIprocedural Use ONLY ONE (17:58)
--- NOTE | 2017-08-06 18:22 | RADRPT ---
EXAM DATE/TIME: 08/06/2017 16:11 [facility] COMPARISON: CT HIP LEFT W/O CONTRAST, August 05, 2017, 15:48. HIP LEFT (AP&LAT 2/3VWS) W AP PELVIS, July 102016, 15:16. INDICATIONS : ORIF left hip. MEDICAL HISTORY : Cerebrovascular disease. Hypertension. Trigeminal neuralgia SURGICAL HISTORY : None. ENCOUNTER: Subsequent ACUITY: 1 day PAIN SCORE: Non-responsive. LOCATION: Left hip. FINDINGS: A two view examination of the left hip was performed. Comminuted intertrochanteric fracture has been repaired with a medullary claudine and compression screw. Its approximate one cortical thickness of latera l displacement of the main distal fragment. CONCLUSION: Open reduction and internal fixation of the comminuted intratrochanteric fracture of the left hi p as above. Yoseph Barnhart MD on August 06, 2017 at 18:17 Board Certified Radiologist. This report was verified electronically.
[2017-08-06] MEDS: LACTATED RINGER'S 1000 ML INJ 1,000 ML IV SCH (18:30)
[2017-08-06] MEDS ORDERED: MORPHINE SULFATE 4 MG/ML INJ IV PRN (19:00)
[2017-08-06] MEDS ORDERED: DO NOT ADM ANY ANTICOAGULANT DRUGS PRN (19:15)
[2017-08-06] MEDS: DICYCLOMINE HCL 20 MG TAB PO SCH (22:06)
[2017-08-06] MEDS: GABAPENTIN 300 MG CAP PO SCH (22:06)
[2017-08-06] MEDS: DOCUSATE SODIUM 50 MG/SENNA 8.6 MG TAB PO SCH (22:06)
[2017-08-06] MEDS: METOPROLOL TARTRATE 50 MG TAB PO SCH (22:06)
[2017-08-06] MEDS: amLODIPine BESYLATE 5 MG TAB PO SCH (22:06)
[2017-08-06] MEDS: carBAMazepine 200 MG TAB PO SCH (22:07)
[2017-08-06] MEDS: ceFAZolin 2 GM PREMIX 50 ML IV SCH (22:07)
[2017-08-07] VITALS (10 sets, daily range): BP systolic 111–192; BP diastolic 70–102; PULSE 84–106; RESP 18–19; TEMP 96–100.1; O2SAT 93–97
[2017-08-07] MEDS ORDERED: ACET325C PO (01:46)
[2017-08-07] MEDS ORDERED: PROM50TA4 PO (01:53)
[2017-08-07] MEDS ORDERED: PROM1SUP9 RECTAL (01:53)
[2017-08-07] MEDS ORDERED: SENN1TAB17 PO (01:55)
[2017-08-07] MEDS ORDERED: CITA10TA4 PO (01:57)
[2017-08-07] MEDS ORDERED: FURO20TA PO (01:58)
[2017-08-07] MEDS ORDERED: POTA10TA2 PO (01:59)
[2017-08-07] MEDS: ceFAZolin 2 GM PREMIX 50 ML IV SCH ×2 (03:38→10:37)
[2017-08-07 05:27] LABS: AUTOMATED NEUTROPHIL # 9.9 TH/MM3 (1.8-7.7); BASOPHIL % 0.2 % (0.0-2.0); HEMATOCRIT 39.4 % (35.0-46.0); HEMO FLAGS DIFF FINAL; LYMPH % 6.8 % (9.0-44.0); LYMPHOCYTE # 0.8 TH/MM3 (1.0-4.8); MEAN CELL VOLUME 96.5 FL (80.0-100.0); MEAN CORPUSCULAR HEMOGLOBIN 33.6 PG (27.0-34.0); MEAN CORPUSCULAR HGB CONC 34.8 % (32.0-36.0); MONO % 7.4 % (0.0-8.0); NEUT % 85.6 % (16.0-70.0); PLATELET COUNT 148 TH/MM3 (150-450); RED BLOOD COUNT 4.09 MIL/MM3 (4.00-5.30); RED CELL DISTRIBUTION WIDTH 12.9 % (11.6-17.2); WHITE BLOOD COUNT 11.6 TH/MM3 (4.0-11.0)
[2017-08-07 05:52] LABS: BICARBONATE 29.7 MEQ/L (21.0-32.0); POTASSIUM 3.3 MEQ/L (3.5-5.1)
[2017-08-07] MEDS: ACETAMINOPHEN/HYDROcodone 325 MG/5 MG TAB PO PRN ×2 (06:53→10:37)
[2017-08-07] MEDS: LACTATED RINGER'S 1000 ML INJ 1,000 ML IV SCH (07:30)
[2017-08-07] MEDS ORDERED: PANTOPRAZOLE SOD 20 MG DELAYED RELEASE TAB PO SCH (09:00)
--- NOTE | 2017-08-07 09:08 | PD.ORT.PN ---
Subjective Post Op Day #: 1 Subjective Remarks Postop day 1 left troch nail Patient is awake and alert and laying in bed. She is oriented to place and event. Admits her left hip pain is well-controlled. She states she has not walked and that she is "scared to try". No family at bedside Objective Vitals Vital Signs Date Time Temp Pulse Resp B/P (MAP) Pulse Ox O2 Delivery O2 Flow Rate FiO2 08/07/17 08:00 98.4 95 18 179/92 (121) 93 08/07/17 08:00 96.0 88 18 152/72 (98) 95 08/07/17 04:50 100.1 99 19 168/88 (114) 97 08/07/17 03:45 100 08/07/17 00:50 168/90 (116) 08/07/17 00:15 97.5 106 19 182/102 (128) 93 08/06/17 23:50 107 08/06/17 20:45 98.4 106 18 168/96 (120) 95 Automatic Cuff 08/06/17 20:10 100 08/06/17 18:30 95 18 159/95 (116) 95 Nasal Cannula 2 08/06/17 18:15 94 18 158/81 (106) 95 Nasal Cannula 2 08/06/17 18:00 111 18 186/97 (126) 96 Nasal Cannula 2 08/06/17 17:45 112 18 167/89 (115) 95 Nasal Cannula 2 08/06/17 17:30 110 18 174/96 (122) 93 Nasal Cannula 2 08/06/17 17:15 102 18 170/89 (116) 94 Nasal Cannula 2 08/06/17 16:57 97.7 98 18 146/92 (110) 95 Nasal Cannula 2 08/06/17 11:40 96.7 106 19 177/94 (121) 96 I/O 08/06/17 08/06/17 08/06/17 08/07/17 08/07/17 08/07/17 07:00 15:00 23:00 07:00 15:00 23:00 Intake Total 0 ml 0 ml 1290 ml 50 ml Output Total 625 ml Balance 0 ml 0 ml 665 ml 50 ml Intake Oral 0 ml 0 ml 240 ml IV Total 1050 ml 50 ml Output Urine Total 525 ml Estimated Blood Loss 100 ml # Voids 2 4 # Bowel Movements 0 0 0 Result Diagram: 08/07/17 0425 08/07/17 0425 Imaging Last 48 hours Impressions Hip X-Ray 08/06/17 0000 Signed Impressions: Service Date/Time: Sunday, August 06, 2017 16:11 - CONCLUSION: Open reduction and internal fixation of the comminuted intratrochanteric fracture of the left hip as above. Yoseph Barnhart MD Chest X-Ray 08/05/17 1437 Signed Impressions: Service Date/Time: Saturday, August 05, 2017 15:25 - CONCLUSION: 1. Negative portable chest status post trauma. Arnold Ledesma MD Procedures Close reduction with trochanteric nail fixation left proximal femur fracture Objective Remarks Dressing dry and intact. Tender to palpation with mild swelling around incision site. Appropriate range of motion expected post operatively. Freely able to move distal digits. No calf pain. Negative Africa's sign. Good cap refill. 2+ pedal pulses. Neurovascular intact. Assessment & Plan Ortho Post Op Day #: 1 Problem List: (1) Intertrochanteric fracture of left femur ICD Codes: S72.142A - Displaced intertrochanteric fracture of left femur, initial encounter for closed fracture (2) COPD (chronic obstructive pulmonary disease) ICD Codes: J44.9 - Chronic obstructive pulmonary disease, unspecified (3) History of CVA (cerebrovascular accident) ICD Codes: Z86.73 - Personal history of transient ischemic attack (TIA), and cerebral infarction without residual deficits (4) Tobacco dependence ICD Codes: F17.200 - Nicotine dependence, unspecified, uncomplicated Assessment and Plan POD #1 left trochanteric nail Ortho status stable Progress rehab weightbearing as tolerated, focus on ambulation Xarelto for DVT prophylaxis Daily dressing changes, okay to change day 1 if tape is coming off Discharge planning - likely to rehab or back to hospice, arrangedments by case management oil refiner to [facility] 08/14/17 Follow-up the Dr. Carl or myself in approximately 3 weeks Belinda Miner Aug 07, 2017 09:08
--- NOTE | 2017-08-07 09:20 | HHI.PR ---
Subjective Remarks This is a pleasant 72 y/o Female status post fall at home, she has Hospice Home , left hip pain on Home Oxygen, due to Stage IV COPD, she is DNR, History of CVA, Hypertension, Hyperlipidemia I was called by his Nurse Miss Flores I came to the floor to clear the situation, her Daughter Miss Lorelei Davenport she is concerned about her Mother and not the risk for surgery I talked with her she wants to ask for details about her Surgery this questions are only possible to answer by her Primary surgical Team a call placed to Doctor Meseret, she will discuss details with Orthopedic surgery, discussed with patient because she is able to take her own decision and when discussed with the patient about her Daughter concerns, she say "I will be fine". at this time the patient wants to proceed with Surgery and her POA will help if the patient is not able to take her own decisions. 08/07: Seen in her bedroom with diagnosis of Intertrochanteric fracture of the left femur status post Close reduction with trochanteric nail fixation left proximal femur fracture by Doctor aRs Carl seen in her bedroom, found Hypokalemia replacing by mouth, she is eating well, will remove IV fluids. no nausea, vomit or diarrhea, breathing without difficulties. Objective Vital Signs Date Time Temp Pulse Resp B/P (MAP) Pulse Ox O2 Delivery O2 Flow Rate FiO2 08/07/17 08:00 98.4 95 18 179/92 (121) 93 08/07/17 08:00 96.0 88 18 152/72 (98) 95 08/07/17 04:50 100.1 99 19 168/88 (114) 97 08/07/17 03:45 100 08/07/17 00:50 168/90 (116) 08/07/17 00:15 97.5 106 19 182/102 (128) 93 08/06/17 23:50 107 08/06/17 20:45 98.4 106 18 168/96 (120) 95 Automatic Cuff 08/06/17 20:10 100 08/06/17 18:30 95 18 159/95 (116) 95 Nasal Cannula 2 08/06/17 18:15 94 18 158/81 (106) 95 Nasal Cannula 2 08/06/17 18:00 111 18 186/97 (126) 96 Nasal Cannula 2 08/06/17 17:45 112 18 167/89 (115) 95 Nasal Cannula 2 08/06/17 17:30 110 18 174/96 (122) 93 Nasal Cannula 2 08/06/17 17:15 102 18 170/89 (116) 94 Nasal Cannula 2 08/06/17 16:57 97.7 98 18 146/92 (110) 95 Nasal Cannula 2 08/06/17 11:40 96.7 106 19 177/94 (121) 96 I/O 08/06/17 08/06/17 08/06/17 08/07/17 08/07/17 08/07/17 07:00 15:00 23:00 07:00 15:00 23:00 Intake Total 0 ml 0 ml 1290 ml 50 ml Output Total 625 ml Balance 0 ml 0 ml 665 ml 50 ml Intake Oral 0 ml 0 ml 240 ml IV Total 1050 ml 50 ml Output Urine Total 525 ml Estimated Blood Loss 100 ml # Voids 2 4 # Bowel Movements 0 0 0 Result Diagram: 08/07/17 0425 08/07/17 0425 Imaging Last Impressions Hip X-Ray 08/06/17 0000 Signed Impressions: Service Date/Time: Sunday, August 06, 2017 16:11 - CONCLUSION: Open reduction and internal fixation of the comminuted intratrochanteric fracture of the left hip as above. Yoseph Barnhart MD Chest X-Ray 08/05/17 1437 Signed Impressions: Service Date/Time: Saturday, August 05, 2017 15:25 - CONCLUSION: 1. Negative portable chest status post trauma. Arnold Ledesma MD Lower Extremity CT 08/05/17 0000 Signed Impressions: Service Date/Time: Saturday, August 05, 2017 15:48 - CONCLUSION: 1. Impacted transcervical left femoral neck fracture with associated slightly comminuted nondisplaced trochanteric fractures. Arnold Ledesma MD Hip and Pelvis X-Ray 08/05/17 0000 Signed Impressions: Service Date/Time: Saturday, August 05, 2017 15:16 - CONCLUSION: 1. Subtle lucency without definite cortical step-off in the left femoral neck may be projectional although a nondisplaced transcervical left femoral neck fracture cannot be excluded. This is inadequately visualized and therefore can't be confirmed on the crosstable lateral view. Consider frog-leg view for better visualization. Alternatively, CT examination may be performed as clinically warranted. Arnold Ledesma MD Head CT 08/05/17 0000 Signed Impressions: Service Date/Time: Saturday, August 05, 2017 15:43 - CONCLUSION: 1. Senescent changes with progressive small vessel white matter ischemic demyelination. 2. No acute intracranial abnormality. Arnold Ledesma MD Procedures 08/06/17 with diagnosis of Intertrochanteric fracture of the left femur status post Close reduction with trochanteric nail fixation left proximal femur fracture by Doctor Ras Carl Other Results Laboratory Tests Test 08/06/17 06:36 08/07/17 04:25 Prothrombin Time 10.7 SEC Prothromb Time International Ratio 1.0 RATIO White Blood Count 11.6 TH/MM3 Red Blood Count 4.09 MIL/MM3 Hemoglobin 13.7 GM/DL Hematocrit 39.4 % Mean Corpuscular Volume 96.5 FL Mean Corpuscular Hemoglobin 33.6 PG Mean Corpuscular Hemoglobin Concent 34.8 % Red Cell Distribution Width 12.9 % Platelet Count 148 TH/MM3 Mean Platelet Volume 9.5 FL Neutrophils (%) (Auto) 85.6 % Lymphocytes (%) (Auto) 6.8 % Monocytes (%) (Auto) 7.4 % Eosinophils (%) (Auto) 0.0 % Basophils (%) (Auto) 0.2 % Neutrophils # (Auto) 9.9 TH/MM3 Lymphocytes # (Auto) 0.8 TH/MM3 Monocytes # (Auto) 0.9 TH/MM3 Eosinophils # (Auto) 0.0 TH/MM3 Basophils # (Auto) 0.0 TH/MM3 CBC Comment DIFF FINAL Differential Comment Blood Urea Nitrogen 14 MG/DL Creatinine 0.62 MG/DL Random Glucose 139 MG/DL Calcium Level 9.2 MG/DL Phosphorus Level 2.5 MG/DL Magnesium Level 2.0 MG/DL Sodium Level 138 MEQ/L Potassium Level 3.3 MEQ/L Chloride Level 100 MEQ/L Carbon Dioxide Level 29.7 MEQ/L Anion Gap 8 MEQ/L Estimat Glomerular Filtration Rate 95 ML/MIN Objective Remarks GENERAL: No acute distress. SKIN: No rashes, ecchymoses or lesions. Cool and dry. HEAD: Atraumatic. Normocephalic. No temporal or scalp tenderness. EYES: No scleral icterus. No injection or drainage. ENT: Nose without bleeding, purulent drainage or septal hematoma.. Airway patent. NECK: Trachea midline. No JVD CARDIOVASCULAR: Regular rate and rhythm without murmurs, gallops, or rubs. RESPIRATORY: Decreased air entry bilaterally. Poor inspiratory effort. GASTROINTESTINAL: Abdomen soft, non-tender, nondistended. No guarding. MUSCULOSKELETAL: Left hip dressed. NEUROLOGICAL: Awake and alert. Normal speech. Medications and IVs Current Medications Medications (Trade) Dose Ordered Sig/Tatiana Route Start Time Stop Time Status Last Admin (Pepcid) 20 mg Q12HR PO 08/05/17 21:00 08/06/17 22:06 (Norvasc) 5 mg DAILY PO 08/06/17 16:30 08/06/17 22:06 (TEGretol) 200 mg TID PO 08/06/17 18:00 08/06/17 22:07 (Bentyl) 20 mg QID PO 08/06/17 18:00 08/06/17 22:06 (Neurontin) 600 mg TID PO 08/06/17 18:00 08/06/17 22:06 (Lopressor) 50 mg BID PO 08/06/17 21:00 08/06/17 22:06 (Apresoline Inj) 20 mg Q4H PRN IV PUSH 08/06/17 16:30 Lactated Ringer's 1,000 ml @ 80 mls/hr [id number] IV 08/06/17 19:00 08/06/17 18:30 (NS Flush) 2 ml UNSCH PRN IV FLUSH 08/06/17 17:00 (NS Flush) 2 ml BID IV FLUSH 08/06/17 21:00 08/06/17 22:08 Cefazolin Sodium/ Dextrose 50 ml @ 100 mls/hr Q6H IV 08/06/17 21:00 08/07/17 09:29 08/07/17 03:38 (Xarelto) 10 mg Q24H PO 08/07/17 16:30 (Morphine Inj) 4 mg Q3H PRN IV 08/06/17 19:00 08/07/17 00:21 ([place] 5-325 Mg) 1 tab Q4H PRN PO 08/06/17 17:00 08/07/17 06:53 ([place] 5-325 Mg) 2 tab Q4H PRN PO 08/06/17 17:00 (Tylenol) 650 mg Q6H PRN PO 08/06/17 17:00 (Theragran M Tab) 1 tab BID PO 08/07/17 21:00 10/06/17 20:59 (Zofran Inj) 4 mg Q6H PRN IVP 08/06/17 17:00 (Mag-Al Plus Susp Liq) 30 ml Q6H PRN PO 08/06/17 17:00 (Betadine 10% Top Soln) 30 applic UNSCH X1 PRN TOPICAL 08/06/17 17:00 08/08/17 16:59 (Olivia-Colace) 1 tab BID PO 08/06/17 21:00 08/06/17 22:06 (Milk Of Magnesia Liq) 30 ml Q12H PRN PO 08/06/17 17:00 (Senokot) 17.2 mg Q12H PRN PO 08/06/17 17:00 08/06/17 22:06 (Dulcolax Supp) 10 mg DAILY PRN RECTAL 08/06/17 17:00 (Lactulose Liq) 30 ml DAILY PRN PO 08/06/17 17:00 Miscellaneous Information ALL NURSING DEPARTME... UNSCH PRN .XX 08/06/17 19:15 08/07/17 19:14 A/P Assessment and Plan 1. Status post Fall 2. Left Femoral Neck Fracture secondary to fall 08/06/17 with diagnosis of Intertrochanteric fracture of the left femur status post Close reduction with trochanteric nail fixation left proximal femur fracture by Doctor Ras Carl 3. Leukocytosis reactive no signs of infection. 4. Stage IV COPD on home oxygen, continue Bronchodilator, Mucolytic, incentive spirometry. 5. CVA by history 6. Chronic Tobacco dependence more than one pack daily strongly recommended to stop smoking 7. Hypertension uncontrolled continue Home medicines and added Clonidine as needed. 8. Hyperlipidemia to continue home medicines. 9. Hypokalemia replacing and following. DVT prophylaxis with SCD for now. Chemical prophylaxis postoperatively. GI prophylaxis with ranitidine. Discharge Planning Once cleared by Specialist Tyrell Alegre MD Aug 07, 2017 09:20
[2017-08-07] MEDS ORDERED: POTASSIUM CHLORIDE 20 MEQ CONTROLLED RELEASE TAB PO ONE ×2 (09:45→12:00)
[2017-08-07] MEDS: METOPROLOL TARTRATE 50 MG TAB PO SCH ×2 (10:36→21:27)
[2017-08-07] MEDS: DOCUSATE SODIUM 50 MG/SENNA 8.6 MG TAB PO SCH ×2 (10:36→21:00)
[2017-08-07] MEDS: DICYCLOMINE HCL 20 MG TAB PO SCH ×4 (10:36→21:27)
[2017-08-07] MEDS: amLODIPine BESYLATE 5 MG TAB PO SCH (10:36)
[2017-08-07] MEDS: carBAMazepine 200 MG TAB PO SCH ×3 (10:36→18:43)
[2017-08-07] MEDS: FAMOTIDINE 20 MG TAB PO SCH ×2 (10:36→21:27)
[2017-08-07] MEDS: GABAPENTIN 300 MG CAP PO SCH ×3 (10:36→18:43)
[2017-08-07] MEDS: SODIUM CHLORIDE 0.9% FLUSH 10 ML FLUSH IV FLUSH SCH ×2 (10:37→21:27)
[2017-08-07] MEDS ORDERED: cloNIDine HCL 0.1 MG TAB PO PRN (15:00)
[2017-08-07] MEDS ORDERED: PILL SPLITTER OTHER PRN (15:45)
[2017-08-07] MEDS: CITALOPRAM HYDROBROMIDE 20 MG TAB PO SCH (16:52)
[2017-08-07] MEDS: FUROSEMIDE 20 MG TAB PO SCH (16:53)
[2017-08-07] MEDS: RIVAROXABAN 10 MG TAB PO SCH (16:53)
[2017-08-07] MEDS: MULTIVITAMINS/MINERALS THERAPEUTIC TAB PO SCH (21:27)
[2017-08-08] VITALS (9 sets, daily range): BP systolic 108–150; BP diastolic 62–79; PULSE 74–101; RESP 16–18; TEMP 96.9–99; O2SAT 92–97
[2017-08-08 06:26] LABS: AUTOMATED NEUTROPHIL # 6.9 TH/MM3 (1.8-7.7); BASOPHIL % 0.4 % (0.0-2.0); EOSINOPHIL % 0.2 % (0.0-4.0); HEMATOCRIT 36.2 % (35.0-46.0); HEMO FLAGS DIFF FINAL; LYMPH % 14.3 % (9.0-44.0); LYMPHOCYTE # 1.3 TH/MM3 (1.0-4.8); MEAN CELL VOLUME 97.6 FL (80.0-100.0); MEAN CORPUSCULAR HEMOGLOBIN 33.6 PG (27.0-34.0); MEAN CORPUSCULAR HGB CONC 34.4 % (32.0-36.0); MONO % 7.6 % (0.0-8.0); NEUT % 77.5 % (16.0-70.0); PLATELET COUNT 132 TH/MM3 (150-450); RED CELL DISTRIBUTION WIDTH 13.5 % (11.6-17.2); WHITE BLOOD COUNT 8.8 TH/MM3 (4.0-11.0)
[2017-08-08 06:52] LABS: BICARBONATE 32.6 MEQ/L (21.0-32.0); MAGNESIUM 2.2 MG/DL (1.5-2.5); POTASSIUM 4.2 MEQ/L (3.5-5.1)
--- NOTE | 2017-08-08 07:49 | PD.ORT.PN ---
Subjective Post Op Day #: 2 Subjective Remarks Postop day 2 left troch nail Patient is asleep but arousable. She answers her left hip feels 'much better'. No family at bedside Objective Vitals Vital Signs Date Time Temp Pulse Resp B/P (MAP) Pulse Ox O2 Delivery O2 Flow Rate FiO2 08/08/17 04:00 96.9 79 17 130/78 (95) 97 08/08/17 03:57 75 08/08/17 00:16 77 08/08/17 00:00 97.3 75 16 129/69 (89) 96 08/07/17 20:17 100 08/07/17 19:50 96.3 95 18 111/70 (84) 94 08/07/17 19:04 96.3 95 18 111/70 (84) 94 08/07/17 15:00 96.2 84 19 137/83 (101) 93 08/07/17 12:00 98.2 89 18 192/90 (124) 93 08/07/17 08:00 98.4 95 18 179/92 (121) 93 08/07/17 08:00 96.0 88 18 152/72 (98) 95 I/O 08/07/17 08/07/17 08/07/17 08/08/17 08/08/17 08/08/17 07:00 15:00 23:00 07:00 15:00 23:00 Intake Total 50 ml 530 ml 300 ml 240 ml Output Total 250 ml 300 ml Balance 50 ml 280 ml 0 ml 240 ml Intake Oral 480 ml 300 ml 240 ml IV Total 50 ml 50 ml Output Urine Total 250 ml 300 ml # Voids 2 # Bowel Movements 0 1 1 Result Diagram: 08/08/17 0534 08/08/17 0534 Imaging Last 48 hours Impressions Hip X-Ray 08/06/17 0000 Signed Impressions: Service Date/Time: Sunday, August 06, 2017 16:11 - CONCLUSION: Open reduction and internal fixation of the comminuted intratrochanteric fracture of the left hip as above. Yoseph Barnhart MD Chest X-Ray 08/05/17 1437 Signed Impressions: Service Date/Time: Saturday, August 05, 2017 15:25 - CONCLUSION: 1. Negative portable chest status post trauma. Arnold Ledesma MD Procedures Close reduction with trochanteric nail fixation left proximal femur fracture Objective Remarks Dressing dry and intact. Tender to palpation with mild swelling around incision site. Appropriate range of motion expected post operatively. Freely able to move distal digits. No calf pain. Negative [place]'s sign. Good cap refill. 2+ pedal pulses. Neurovascular intact. Assessment & Plan Problem List: (1) Intertrochanteric fracture of left femur ICD Codes: S72.142A - Displaced intertrochanteric fracture of left femur, initial encounter for closed fracture (2) COPD (chronic obstructive pulmonary disease) ICD Codes: J44.9 - Chronic obstructive pulmonary disease, unspecified (3) History of CVA (cerebrovascular accident) ICD Codes: Z86.73 - Personal history of transient ischemic attack (TIA), and cerebral infarction without residual deficits (4) Tobacco dependence ICD Codes: F17.200 - Nicotine dependence, unspecified, uncomplicated Assessment and Plan POD #2 left trochanteric nail Ortho status stable Progress rehab weightbearing as tolerated, focus on ambulation Xarelto for DVT prophylaxis Daily dressing changes Clear for discharge from an orthopedic standpoint- arrangements by case management cosmetic assembler to [facility] thomson 08/14/17 Follow-up the Dr. Carl or myself in approximately 3 weeks Belinda Miner Aug 08, 2017 07:49
[2017-08-08] MEDS ORDERED: XARE10TA PO (07:51)
--- NOTE | 2017-08-08 08:44 | HHI.PR ---
Subjective Remarks This is a pleasant 72 y/o Female status post fall at home, she has Hospice Home , left hip pain on Home Oxygen, due to Stage IV COPD, she is DNR, History of CVA, Hypertension, Hyperlipidemia I was called by his Nurse Miss Flores I came to the floor to clear the situation, her Daughter Miss Lorelei Davenport she is concerned about her Mother and not the risk for surgery I talked with her she wants to ask for details about her Surgery this questions are only possible to answer by her Primary surgical Team a call placed to Doctor Meseret, she will discuss details with Orthopedic surgery, discussed with patient because she is able to take her own decision and when discussed with the patient about her Daughter concerns, she say "I will be fine". at this time the patient wants to proceed with Surgery and her POA will help if the patient is not able to take her own decisions. 08/07: Seen in her bedroom with diagnosis of Intertrochanteric fracture of the left femur status post Close reduction with trochanteric nail fixation left proximal femur fracture by Doctor Ras Carl seen in her bedroom, found Hypokalemia replacing by mouth, she is eating well, will remove IV fluids. no nausea, vomit or diarrhea, breathing without difficulties. 08/08: Stable in her bedroom, discussed with nurse No nausea, vomit or diarrhea , okay to discharge from Orthopedic surgery standpoint. today is post operative day two, discharge to Rehab, weightbearing as tolerated, focus on ambulation, daily dressing changes, DC alix on and follow with Doctor Carl in 3 weeks. Objective Vital Signs Date Time Temp Pulse Resp B/P (MAP) Pulse Ox O2 Delivery O2 Flow Rate FiO2 08/08/17 08:00 97.3 74 18 140/79 (99) 95 08/08/17 04:00 96.9 79 17 130/78 (95) 97 08/08/17 03:57 75 08/08/17 00:16 77 08/08/17 00:00 97.3 75 16 129/69 (89) 96 08/07/17 20:17 100 08/07/17 19:50 96.3 95 18 111/70 (84) 94 08/07/17 19:04 96.3 95 18 111/70 (84) 94 08/07/17 15:00 96.2 84 19 137/83 (101) 93 08/07/17 12:00 98.2 89 18 192/90 (124) 93 I/O 08/07/17 08/07/17 08/07/17 08/08/17 08/08/17 08/08/17 07:00 15:00 23:00 07:00 15:00 23:00 Intake Total 50 ml 530 ml 300 ml 240 ml Output Total 250 ml 300 ml Balance 50 ml 280 ml 0 ml 240 ml Intake Oral 480 ml 300 ml 240 ml IV Total 50 ml 50 ml Output Urine Total 250 ml 300 ml # Voids 2 # Bowel Movements 0 1 1 Result Diagram: 08/08/17 0534 08/08/17 0534 Imaging Last Impressions Hip X-Ray 08/06/17 0000 Signed Impressions: Service Date/Time: Sunday, August 06, 2017 16:11 - CONCLUSION: Open reduction and internal fixation of the comminuted intratrochanteric fracture of the left hip as above. Yoseph Barnhart MD Chest X-Ray 08/05/17 1437 Signed Impressions: Service Date/Time: Saturday, August 05, 2017 15:25 - CONCLUSION: 1. Negative portable chest status post trauma. Arnold Ledesma MD Lower Extremity CT 08/05/17 0000 Signed Impressions: Service Date/Time: Saturday, August 05, 2017 15:48 - CONCLUSION: 1. Impacted transcervical left femoral neck fracture with associated slightly comminuted nondisplaced trochanteric fractures. Arnold Ledesma MD Hip and Pelvis X-Ray 08/05/17 0000 Signed Impressions: Service Date/Time: Saturday, August 05, 2017 15:16 - CONCLUSION: 1. Subtle lucency without definite cortical step-off in the left femoral neck may be projectional although a nondisplaced transcervical left femoral neck fracture cannot be excluded. This is inadequately visualized and therefore can't be confirmed on the crosstable lateral view. Consider frog-leg view for better visualization. Alternatively, CT examination may be performed as clinically warranted. Arnold Ledesma MD Head CT 08/05/17 0000 Signed Impressions: Service Date/Time: Saturday, August 05, 2017 15:43 - CONCLUSION: 1. Senescent changes with progressive small vessel white matter ischemic demyelination. 2. No acute intracranial abnormality. Arnold Ledesma MD Procedures 08/06/17 with diagnosis of Intertrochanteric fracture of the left femur status post Close reduction with trochanteric nail fixation left proximal femur fracture by Doctor Ras Carl Other Results Laboratory Tests Test 08/06/17 06:36 08/08/17 05:34 Prothrombin Time 10.7 SEC Prothromb Time International Ratio 1.0 RATIO White Blood Count 8.8 TH/MM3 Red Blood Count 3.70 MIL/MM3 Hemoglobin 12.4 GM/DL Hematocrit 36.2 % Mean Corpuscular Volume 97.6 FL Mean Corpuscular Hemoglobin 33.6 PG Mean Corpuscular Hemoglobin Concent 34.4 % Red Cell Distribution Width 13.5 % Platelet Count 132 TH/MM3 Mean Platelet Volume 9.0 FL Neutrophils (%) (Auto) 77.5 % Lymphocytes (%) (Auto) 14.3 % Monocytes (%) (Auto) 7.6 % Eosinophils (%) (Auto) 0.2 % Basophils (%) (Auto) 0.4 % Neutrophils # (Auto) 6.9 TH/MM3 Lymphocytes # (Auto) 1.3 TH/MM3 Monocytes # (Auto) 0.7 TH/MM3 Eosinophils # (Auto) 0.0 TH/MM3 Basophils # (Auto) 0.0 TH/MM3 CBC Comment DIFF FINAL Differential Comment Blood Urea Nitrogen 22 MG/DL Creatinine 0.84 MG/DL Random Glucose 105 MG/DL Calcium Level 8.9 MG/DL Phosphorus Level 2.7 MG/DL Magnesium Level 2.2 MG/DL Sodium Level 139 MEQ/L Potassium Level 4.2 MEQ/L Chloride Level 102 MEQ/L Carbon Dioxide Level 32.6 MEQ/L Anion Gap 4 MEQ/L Estimat Glomerular Filtration Rate 67 ML/MIN Objective Remarks GENERAL: No acute distress. SKIN: No rashes, ecchymoses or lesions. Cool and dry. HEAD: Atraumatic. Normocephalic. No temporal or scalp tenderness. EYES: No scleral icterus. No injection or drainage. ENT: Nose without bleeding, purulent drainage or septal hematoma.. Airway patent. NECK: Trachea midline. No JVD CARDIOVASCULAR: Regular rate and rhythm without murmurs, gallops, or rubs. RESPIRATORY: Decreased air entry bilaterally. Poor inspiratory effort. GASTROINTESTINAL: Abdomen soft, non-tender, nondistended. No guarding. MUSCULOSKELETAL: Left hip dressed. NEUROLOGICAL: Awake and alert. Normal speech. Medications and IVs Current Medications Medications (Trade) Dose Ordered Sig/Tatiana Route Start Time Stop Time Status Last Admin (Pepcid) 20 mg Q12HR PO 08/05/17 21:00 08/07/17 21:27 (Norvasc) 5 mg DAILY PO 08/06/17 16:30 08/07/17 10:36 (TEGretol) 200 mg TID PO 08/06/17 18:00 08/07/17 18:43 (Bentyl) 20 mg QID PO 08/06/17 18:00 08/07/17 21:27 (Neurontin) 600 mg TID PO 08/06/17 18:00 08/07/17 18:43 (Lopressor) 50 mg BID PO 08/06/17 21:00 08/07/17 21:27 (Apresoline Inj) 20 mg Q4H PRN IV PUSH 08/06/17 16:30 (NS Flush) 2 ml UNSCH PRN IV FLUSH 08/06/17 17:00 (NS Flush) 2 ml BID IV FLUSH 08/06/17 21:00 08/07/17 21:27 (Xarelto) 10 mg Q24H PO 08/07/17 16:30 08/07/17 16:53 (Morphine Inj) 4 mg Q3H PRN IV 08/06/17 19:00 08/07/17 00:21 ([place] 5-325 Mg) 1 tab Q4H PRN PO 08/06/17 17:00 08/07/17 10:37 ([place] 5-325 Mg) 2 tab Q4H PRN PO 08/06/17 17:00 08/08/17 00:27 (Tylenol) 650 mg Q6H PRN PO 08/06/17 17:00 (Theragran M Tab) 1 tab BID PO 08/07/17 21:00 10/06/17 20:59 08/07/17 21:27 (Zofran Inj) 4 mg Q6H PRN IVP 08/06/17 17:00 (Mag-Al Plus Susp Liq) 30 ml Q6H PRN PO 08/06/17 17:00 (Betadine 10% Top Soln) 30 applic UNSCH X1 PRN TOPICAL 08/06/17 17:00 08/08/17 16:59 (Olivia-Colace) 1 tab BID PO 08/06/17 21:00 08/07/17 10:36 (Milk Of Magnesia Liq) 30 ml Q12H PRN PO 08/06/17 17:00 (Senokot) 17.2 mg Q12H PRN PO 08/06/17 17:00 08/06/17 22:06 (Dulcolax Supp) 10 mg DAILY PRN RECTAL 08/06/17 17:00 (Lactulose Liq) 30 ml DAILY PRN PO 08/06/17 17:00 (CeleXA) 10 mg DAILY PO 08/07/17 15:00 08/07/17 16:52 (Lasix) 20 mg DAILY PO 08/07/17 15:00 08/07/17 16:53 (KCl) 10 meq DAILY PO 08/08/17 09:00 (Catapres) 0.1 mg Q6H PRN PO 08/07/17 15:00 08/07/17 16:53 (Pill Splitter) 1 ea UNSCH PRN OTHER 08/07/17 15:45 A/P Assessment and Plan 1. Status post Fall 2. Left Femoral Neck Fracture secondary to fall 08/06/17 with diagnosis of Intertrochanteric fracture of the left femur status post Close reduction with trochanteric nail fixation left proximal femur fracture by Doctor Ras Carl Okay to discharge from Orthopedic surgery standpoint. today is post operative day two, discharge to Rehab, weightbearing as tolerated, focus on ambulation, daily dressing changes, DC alix on 03/24 and follow with Doctor Carl in 3 weeks. 3. Leukocytosis reactive no signs of infection. 4. Stage IV COPD on home oxygen, continue Bronchodilator, Mucolytic, incentive spirometry. 5. CVA by history 6. Chronic Tobacco dependence more than one pack daily strongly recommended to stop smoking 7. Hypertension Controlled. 8. Hyperlipidemia to continue home medicines. 9. Hypokalemia replaced DVT prophylaxis with SCD for now. Chemical prophylaxis postoperatively. GI prophylaxis with ranitidine. Discharge Planning Discharge to SNF today. Tyrell Alegre MD Aug 08, 2017 8:44 am
[2017-08-08] MEDS ORDERED: OXYC1TAB63 PO (08:50)
[2017-08-08] MEDS: DOCUSATE SODIUM 50 MG/SENNA 8.6 MG TAB PO SCH ×2 (09:00→20:55)
[2017-08-08] MEDS: SODIUM CHLORIDE 0.9% FLUSH 10 ML FLUSH IV FLUSH SCH ×2 (09:00→20:55)
[2017-08-08] MEDS: MULTIVITAMINS/MINERALS THERAPEUTIC TAB PO SCH ×2 (10:07→20:55)
[2017-08-08] MEDS: POTASSIUM CHLORIDE 10 MEQ CONTROLLED RELEASE TAB PO SCH (10:08)
[2017-08-08] MEDS: amLODIPine BESYLATE 5 MG TAB PO SCH (10:08)
[2017-08-08] MEDS: FUROSEMIDE 20 MG TAB PO SCH (10:08)
[2017-08-08] MEDS: carBAMazepine 200 MG TAB PO SCH ×3 (10:08→17:17)
[2017-08-08] MEDS: DICYCLOMINE HCL 20 MG TAB PO SCH ×4 (10:08→20:55)
[2017-08-08] MEDS: CITALOPRAM HYDROBROMIDE 20 MG TAB PO SCH (10:08)
[2017-08-08] MEDS: METOPROLOL TARTRATE 50 MG TAB PO SCH ×2 (10:08→20:55)
[2017-08-08] MEDS: FAMOTIDINE 20 MG TAB PO SCH ×2 (10:09→20:55)
[2017-08-08] MEDS: GABAPENTIN 300 MG CAP PO SCH ×3 (10:09→17:16)
[2017-08-08] MEDS: ACETAMINOPHEN/HYDROcodone 325 MG/5 MG TAB PO PRN ×2 (10:09→17:17)
--- NOTE | 2017-08-08 12:13 | HHI.DS ---
Discharge Summary Admission Date Aug 05, 2017 at 5:40 pm Discharge Date: Aug 08, 2017 Admitting Diagnosis hip fracture (1) Intertrochanteric fracture of left femur ICD Code: S72.142A - Displaced intertrochanteric fracture of left femur, initial encounter for closed fracture Diagnosis: Principal (2) COPD (chronic obstructive pulmonary disease) ICD Code: J44.9 - Chronic obstructive pulmonary disease, unspecified Diagnosis: Principal (3) History of CVA (cerebrovascular accident) ICD Code: Z86.73 - Personal history of transient ischemic attack (TIA), and cerebral infarction without residual deficits Diagnosis: Secondary (4) Tobacco dependence ICD Code: F17.200 - Nicotine dependence, unspecified, uncomplicated Diagnosis: Principal Procedures 08/06/17 with diagnosis of Intertrochanteric fracture of the left femur status post Close reduction with trochanteric nail fixation left proximal femur fracture by Doctor Ras Carl Brief History - From Admission History from patient, ER physician communication, and review of medical records. Patient is an elderly lady. She is somewhat of a poor historian and also she does know her medical history. She seems to be in more of pain and distress which was mostly limiting her history. She reports that she fell down at home. She states she lives alone. Hospice nurse comes and see her at least once a week. She also does get other types of help at home although she is not able to specify what type particularly. She reports that she walks with her walker all the time because of her left knee pain. She today walked with her walker to words her refrigerator and try to get something out of the refrigerator. She believes in so doing, she lost her balance and fell. She states she fells backwards. She thinks she hit her head. She denies being on blood thinners. She states she hit hard and she has landed on her left hip as well. She states she laid there for about 2 hours. When her nurse came to visit the house, she screamed for help and ambulance was therefore called. Patient reports she is on home oxygen per prescription. But she states she doesn't take at all She reports that she has stage IV COPD. She thinks this was the reason why she is on hospice. She reports that she wondered surgery for her left knee pain but she was told she would not survive anesthesia because of her COPD. At present, she does want surgery for her left hip fracture. During my conversation with her, patient tells me that she is a DNR and she wants to make sure that we honor this. She does have a daughter in town. Apart from the above, patient denies any recent fever/nausea/vomiting/diarrhea/ urinary burning or pain on urination. She denies any hematemesis/hematochezia/melena/hematuria. She denies any episodes of chest pain/palpitations/dizziness/syncopal episodes. She reports chronic dyspnea on exertion and chronic left knee pain. CBC/BMP: 08/08/17 0534 08/08/17 0534 Significant Findings Laboratory Tests Test 08/05/17 15:00 08/05/17 16:10 08/06/17 06:36 08/07/17 04:25 Prothrombin Time 11.7 SEC (9.8-11.6) Random Glucose 111 MG/DL (74-106) 140 MG/DL (74-106) 139 MG/DL (74-106) Estimat Glomerular Filtration Rate 72 ML/MIN (>89) White Blood Count 11.9 TH/MM3 (4.0-11.0) 11.6 TH/MM3 (4.0-11.0) Neutrophils (%) (Auto) 86.1 % (16.0-70.0) 84.2 % (16.0-70.0) 85.6 % (16.0-70.0) Lymphocytes (%) (Auto) 8.5 % (9.0-44.0) 7.8 % (9.0-44.0) 6.8 % (9.0-44.0) Neutrophils # (Auto) 10.2 TH/MM3 (1.8-7.7) 8.2 TH/MM3 (1.8-7.7) 9.9 TH/MM3 (1.8-7.7) Platelet Count 148 TH/MM3 (150-450) 148 TH/MM3 (150-450) Lymphocytes # (Auto) 0.8 TH/MM3 (1.0-4.8) 0.8 TH/MM3 (1.0-4.8) Potassium Level 3.3 MEQ/L (3.5-5.1) Test 08/08/17 05:34 Red Blood Count 3.70 MIL/MM3 (4.00-5.30) Platelet Count 132 TH/MM3 (150-450) Neutrophils (%) (Auto) 77.5 % (16.0-70.0) Blood Urea Nitrogen 22 MG/DL (7-18) Carbon Dioxide Level 32.6 MEQ/L (21.0-32.0) Anion Gap 4 MEQ/L (5-15) Estimat Glomerular Filtration Rate 67 ML/MIN (>89) Imaging Last Impressions Hip X-Ray 08/06/17 0000 Signed Impressions: Service Date/Time: Sunday, August 06, 2017 16:11 - CONCLUSION: Open reduction and internal fixation of the comminuted intratrochanteric fracture of the left hip as above. Yoseph Barnhart MD Chest X-Ray 08/05/17 1437 Signed Impressions: Service Date/Time: Saturday, August 05, 2017 15:25 - CONCLUSION: 1. Negative portable chest status post trauma. Arnold Ledesma MD Lower Extremity CT 08/05/17 0000 Signed Impressions: Service Date/Time: Saturday, August 05, 2017 15:48 - CONCLUSION: 1. Impacted transcervical left femoral neck fracture with associated slightly comminuted nondisplaced trochanteric fractures. Arnold Ledesma MD Hip and Pelvis X-Ray 08/05/17 0000 Signed Impressions: Service Date/Time: Saturday, August 05, 2017 15:16 - CONCLUSION: 1. Subtle lucency without definite cortical step-off in the left femoral neck may be projectional although a nondisplaced transcervical left femoral neck fracture cannot be excluded. This is inadequately visualized and therefore can't be confirmed on the crosstable lateral view. Consider frog-leg view for better visualization. Alternatively, CT examination may be performed as clinically warranted. Arnold Ledesma MD Head CT 08/05/17 0000 Signed Impressions: Service Date/Time: Saturday, August 05, 2017 15:43 - CONCLUSION: 1. Senescent changes with progressive small vessel white matter ischemic demyelination. 2. No acute intracranial abnormality. Arnold Ledesma MD PE at Discharge GENERAL: No acute distress. SKIN: No rashes, ecchymoses or lesions. Cool and dry. HEAD: Atraumatic. Normocephalic. No temporal or scalp tenderness. EYES: No scleral icterus. No injection or drainage. ENT: Nose without bleeding, purulent drainage or septal hematoma.. Airway patent. NECK: Trachea midline. No JVD CARDIOVASCULAR: Regular rate and rhythm without murmurs, gallops, or rubs. RESPIRATORY: Decreased air entry bilaterally. Poor inspiratory effort. GASTROINTESTINAL: Abdomen soft, non-tender, nondistended. No guarding. MUSCULOSKELETAL: Left hip dressed. NEUROLOGICAL: Awake and alert. Normal speech. Hospital Course This is a pleasant 72 y/o Female status post fall at home, she has Hospice Home , left hip pain on Home Oxygen, due to Stage IV COPD, she is DNR, History of CVA, Hypertension, Hyperlipidemia I was called by his Nurse Miss Flores I came to the floor to clear the situation, her Daughter Miss Lorelei Davenport she is concerned about her Mother and not the risk for surgery I talked with her she wants to ask for details about her Surgery this questions are only possible to answer by her Primary surgical Team a call placed to Doctor Carl, she will discuss details with Orthopedic surgery, discussed with patient because she is able to take her own decision and when discussed with the patient about her Daughter concerns, she say "I will be fine". at this time the patient wants to proceed with Surgery and her POA will help if the patient is not able to take her own decisions. 08/07: Seen in her bedroom with diagnosis of Intertrochanteric fracture of the left femur status post Close reduction with trochanteric nail fixation left proximal femur fracture by Doctor Ras Carl seen in her bedroom, found Hypokalemia replacing by mouth, she is eating well, will remove IV fluids. no nausea, vomit or diarrhea, breathing without difficulties. 08/08: Stable in her bedroom, discussed with nurse No nausea, vomit or diarrhea , okay to discharge from Orthopedic surgery standpoint. today is post operative day two, discharge to Rehab, weightbearing as tolerated, focus on ambulation, daily dressing changes, DC alix on and follow with Doctor Carl in 3 weeks. Assessment and Plan 1. Status post Fall 2. Left Femoral Neck Fracture secondary to fall 08/06/17 with diagnosis of Intertrochanteric fracture of the left femur status post Close reduction with trochanteric nail fixation left proximal femur fracture by Doctor Ras Carl Okay to discharge from Orthopedic surgery standpoint. today is post operative day two, discharge to Rehab, weightbearing as tolerated, focus on ambulation, daily dressing changes, DC alix on 03/24 and follow with Doctor Meseret in 3 weeks. 3. Leukocytosis reactive no signs of infection. 4. Stage IV COPD on home oxygen, continue Bronchodilator, Mucolytic, incentive spirometry. 5. CVA by history 6. Chronic Tobacco dependence more than one pack daily strongly recommended to stop smoking 7. Hypertension Controlled. 8. Hyperlipidemia to continue home medicines. 9. Hypokalemia replaced DVT prophylaxis with SCD for now. Chemical prophylaxis postoperatively. GI prophylaxis with ranitidine. Discharge Planning Discharge to SNF today. Pt Condition on Discharge: Good Discharge Disposition: Discharge to SNF Discharge Time: <= 30 minutes Discharge Instructions DIET: Follow Instructions for: Heart Healthy Diet Activities you can perform: Weight Bearing as Beth Activities to Avoid: Lifting/Bending Tyrell Alerge MD Aug 08, 2017 12:13
[2017-08-08] MEDS: RIVAROXABAN 10 MG TAB PO SCH (17:16)
[2017-08-08 21:17] LABS: BLOOD, URINE NEG (NEG); COMMENT (UR) CATH-CULT NOT IND; CULTURE IF INDICATED CATH CULTURE NOT IND; GLUCOSE,URINE NEG (NEG); HYALINE CAST, URINE 12 /lpf (RARE); KETONE, URINE NEG (NEG); MUCUS URINE FEW /lpf (OCC); NITRITE,URINE NEG (NEG); PH, URINE 5.5 (5.0-8.5); SQUAMOUS EPITHELIAL CELL URINE 2 /hpf (0-5); URINE COLOR YELLOW (YELLW/STRAW)
[2017-08-09] VITALS: BP 149/71; PULSE 81; RESP 16; TEMP 98.2; O2SAT 95
[2017-08-09] MEDS: ACETAMINOPHEN/HYDROcodone 325 MG/5 MG TAB PO PRN ×3 (00:13→13:46)
[2017-08-09 04:00] VITALS: BP 105/57; PULSE 79; RESP 17; TEMP 97.2; O2SAT 98
[2017-08-09 07:51] VITALS: BP 122/66; PULSE 84; RESP 16; TEMP 97.7; O2SAT 95
[2017-08-09] MEDS: FAMOTIDINE 20 MG TAB PO SCH (08:56)
[2017-08-09] MEDS: GABAPENTIN 300 MG CAP PO SCH ×2 (08:56→13:46)
[2017-08-09] MEDS: carBAMazepine 200 MG TAB PO SCH ×2 (08:56→13:46)
[2017-08-09] MEDS: METOPROLOL TARTRATE 50 MG TAB PO SCH (08:56)
[2017-08-09] MEDS: POTASSIUM CHLORIDE 10 MEQ CONTROLLED RELEASE TAB PO SCH (08:56)
[2017-08-09] MEDS: MULTIVITAMINS/MINERALS THERAPEUTIC TAB PO SCH (08:56)
[2017-08-09] MEDS: FUROSEMIDE 20 MG TAB PO SCH (08:56)
[2017-08-09] MEDS: DICYCLOMINE HCL 20 MG TAB PO SCH ×2 (08:56→13:46)
[2017-08-09] MEDS: amLODIPine BESYLATE 5 MG TAB PO SCH (08:56)
[2017-08-09] MEDS: DOCUSATE SODIUM 50 MG/SENNA 8.6 MG TAB PO SCH (08:57)
[2017-08-09] MEDS: CITALOPRAM HYDROBROMIDE 20 MG TAB PO SCH (08:57)
[2017-08-09] MEDS: SODIUM CHLORIDE 0.9% FLUSH 10 ML FLUSH IV FLUSH SCH (08:57)
[2017-08-09 11:30] VITALS: BP 103/57; PULSE 91; RESP 16; TEMP 96.7; O2SAT 94
[2017-08-09 15:30] VITALS: BP 148/69; PULSE 103; RESP 16; TEMP 96.7; O2SAT 94
--- NOTE | 2017-08-09 15:36 | HHI.PR ---
Subjective Remarks This is a pleasant 72 y/o Female status post fall at home, she has Hospice Home , left hip pain on Home Oxygen, due to Stage IV COPD, she is DNR, History of CVA, Hypertension, Hyperlipidemia I was called by his Nurse Miss Flores I came to the floor to clear the situation, her Daughter Miss Lorelei Davenport she is concerned about her Mother and not the risk for surgery I talked with her she wants to ask for details about her Surgery this questions are only possible to answer by her Primary surgical Team a call placed to Doctor Meseret, she will discuss details with Orthopedic surgery, discussed with patient because she is able to take her own decision and when discussed with the patient about her Daughter concerns, she say "I will be fine". at this time the patient wants to proceed with Surgery and her POA will help if the patient is not able to take her own decisions. 08/07: Seen in her bedroom with diagnosis of Intertrochanteric fracture of the left femur status post Close reduction with trochanteric nail fixation left proximal femur fracture by Doctor Ras Carl seen in her bedroom, found Hypokalemia replacing by mouth, she is eating well, will remove IV fluids. no nausea, vomit or diarrhea, breathing without difficulties. 08/08: Stable in her bedroom, discussed with nurse No nausea, vomit or diarrhea , okay to discharge from Orthopedic surgery standpoint. today is post operative day two, discharge to Rehab, weightbearing as tolerated, focus on ambulation, daily dressing changes, DC alix on and follow with Doctor Carl in 3 weeks. 08/09: Patient discussed with nurse and with [employer] Supervisor accepted by SNF but not yet Insurance approved her no nausea, vomit or diarrhea. Objective Vital Signs Date Time Temp Pulse Resp B/P (MAP) Pulse Ox O2 Delivery O2 Flow Rate FiO2 08/09/17 08:48 Nasal Cannula 3.00 08/09/17 07:51 97.7 84 16 122/66 (84) 95 08/09/17 04:00 97.2 79 17 105/57 (73) 98 08/09/17 00:00 98.2 81 16 149/71 (97) 95 08/08/17 20:00 98.4 101 18 108/69 (82) 97 08/08/17 19:34 Nasal Cannula 3.00 08/08/17 19:32 99 08/08/17 16:00 99.0 90 18 150/71 (97) 93 I/O 08/08/17 08/08/17 08/08/17 08/09/17 08/09/17 08/09/17 07:00 15:00 23:00 07:00 15:00 23:00 Intake Total 240 ml 240 ml 560 ml 240 ml Balance 240 ml 240 ml 560 ml 240 ml Intake Oral 240 ml 240 ml 560 ml 240 ml # Voids 2 2 1 2 # Bowel Movements 1 3 1 Result Diagram: 08/08/17 0534 08/08/17 0534 Imaging Last Impressions Hip X-Ray 08/06/17 0000 Signed Impressions: Service Date/Time: Sunday, August 06, 2017 16:11 - CONCLUSION: Open reduction and internal fixation of the comminuted intratrochanteric fracture of the left hip as above. Yoseph Barnhart MD Chest X-Ray 08/05/17 1437 Signed Impressions: Service Date/Time: Saturday, August 05, 2017 15:25 - CONCLUSION: 1. Negative portable chest status post trauma. Arnold Ledesma MD Lower Extremity CT 08/05/17 0000 Signed Impressions: Service Date/Time: Saturday, August 05, 2017 15:48 - CONCLUSION: 1. Impacted transcervical left femoral neck fracture with associated slightly comminuted nondisplaced trochanteric fractures. Arnold Ledesma MD Hip and Pelvis X-Ray 08/05/17 0000 Signed Impressions: Service Date/Time: Saturday, August 05, 2017 15:16 - CONCLUSION: 1. Subtle lucency without definite cortical step-off in the left femoral neck may be projectional although a nondisplaced transcervical left femoral neck fracture cannot be excluded. This is inadequately visualized and therefore can't be confirmed on the crosstable lateral view. Consider frog-leg view for better visualization. Alternatively, CT examination may be performed as clinically warranted. Arnold Ledesma MD Head CT 08/05/17 0000 Signed Impressions: Service Date/Time: Saturday, August 05, 2017 15:43 - CONCLUSION: 1. Senescent changes with progressive small vessel white matter ischemic demyelination. 2. No acute intracranial abnormality. Arnold Ledesma MD Procedures 08/06/17 with diagnosis of Intertrochanteric fracture of the left femur status post Close reduction with trochanteric nail fixation left proximal femur fracture by Doctor Ras Carl Other Results Laboratory Tests Test 08/06/17 06:36 08/08/17 05:34 08/08/17 20:45 Prothrombin Time 10.7 SEC Prothromb Time International Ratio 1.0 RATIO White Blood Count 8.8 TH/MM3 Red Blood Count 3.70 MIL/MM3 Hemoglobin 12.4 GM/DL Hematocrit 36.2 % Mean Corpuscular Volume 97.6 FL Mean Corpuscular Hemoglobin 33.6 PG Mean Corpuscular Hemoglobin Concent 34.4 % Red Cell Distribution Width 13.5 % Platelet Count 132 TH/MM3 Mean Platelet Volume 9.0 FL Neutrophils (%) (Auto) 77.5 % Lymphocytes (%) (Auto) 14.3 % Monocytes (%) (Auto) 7.6 % Eosinophils (%) (Auto) 0.2 % Basophils (%) (Auto) 0.4 % Neutrophils # (Auto) 6.9 TH/MM3 Lymphocytes # (Auto) 1.3 TH/MM3 Monocytes # (Auto) 0.7 TH/MM3 Eosinophils # (Auto) 0.0 TH/MM3 Basophils # (Auto) 0.0 TH/MM3 CBC Comment DIFF FINAL Differential Comment Blood Urea Nitrogen 22 MG/DL Creatinine 0.84 MG/DL Random Glucose 105 MG/DL Calcium Level 8.9 MG/DL Phosphorus Level 2.7 MG/DL Magnesium Level 2.2 MG/DL Sodium Level 139 MEQ/L Potassium Level 4.2 MEQ/L Chloride Level 102 MEQ/L Carbon Dioxide Level 32.6 MEQ/L Anion Gap 4 MEQ/L Estimat Glomerular Filtration Rate 67 ML/MIN Urine Color YELLOW Urine Turbidity CLEAR Urine pH 5.5 Urine Specific [place] 1.020 Urine Protein TRACE mg/dL Urine Glucose (UA) NEG mg/dL Urine Ketones NEG mg/dL Urine Occult Blood NEG Urine Nitrite NEG Urine Bilirubin NEG Urine Urobilinogen LESS THAN 2.0 MG/DL Urine Leukocyte Esterase NEG Urine RBC LESS THAN 1 /hpf Urine WBC 1 /hpf Urine Squamous Epithelial Cells 2 /hpf Urine Hyaline Casts 12 /lpf Urine Mucus FEW /lpf Microscopic Urinalysis Comment CATH-CULT NOT IND Objective Remarks GENERAL: No acute distress. SKIN: No rashes, ecchymoses or lesions. Cool and dry. HEAD: Atraumatic. Normocephalic. No temporal or scalp tenderness. EYES: No scleral icterus. No injection or drainage. ENT: Nose without bleeding, purulent drainage or septal hematoma.. Airway patent. NECK: Trachea midline. No JVD CARDIOVASCULAR: Regular rate and rhythm without murmurs, gallops, or rubs. RESPIRATORY: Decreased air entry bilaterally. Poor inspiratory effort. GASTROINTESTINAL: Abdomen soft, non-tender, nondistended. No guarding. MUSCULOSKELETAL: Left hip dressed. NEUROLOGICAL: Awake and alert. Normal speech. Medications and IVs Current Medications Medications (Trade) Dose Ordered Sig/Tatiana Route Start Time Stop Time Status Last Admin (Pepcid) 20 mg Q12HR PO 08/05/17 21:00 08/09/17 08:56 (Norvasc) 5 mg DAILY PO 08/06/17 16:30 08/09/17 08:56 (TEGretol) 200 mg TID PO 08/06/17 18:00 08/09/17 13:46 (Bentyl) 20 mg QID PO 08/06/17 18:00 08/09/17 13:46 (Neurontin) 600 mg TID PO 08/06/17 18:00 08/09/17 13:46 (Lopressor) 50 mg BID PO 08/06/17 21:00 08/09/17 08:56 (Apresoline Inj) 20 mg Q4H PRN IV PUSH 08/06/17 16:30 (NS Flush) 2 ml UNSCH PRN IV FLUSH 08/06/17 17:00 (NS Flush) 2 ml BID IV FLUSH 08/06/17 21:00 08/07/17 21:27 (Xarelto) 10 mg Q24H PO 08/07/17 16:30 08/08/17 17:16 (Morphine Inj) 4 mg Q3H PRN IV 08/06/17 19:00 08/07/17 00:21 ([place] 5-325 Mg) 1 tab Q4H PRN PO 08/06/17 17:00 08/09/17 13:46 ([place] 5-325 Mg) 2 tab Q4H PRN PO 08/06/17 17:00 08/08/17 00:27 (Tylenol) 650 mg Q6H PRN PO 08/06/17 17:00 (Theragran M Tab) 1 tab BID PO 08/07/17 21:00 10/06/17 20:59 08/09/17 08:56 (Zofran Inj) 4 mg Q6H PRN IVP 08/06/17 17:00 (Mag-Al Plus Susp Liq) 30 ml Q6H PRN PO 08/06/17 17:00 ([place]-Colace) 1 tab BID PO 08/06/17 21:00 08/07/17 10:36 (Milk Of Magnesia Liq) 30 ml Q12H PRN PO 08/06/17 17:00 (Senokot) 17.2 mg Q12H PRN PO 08/06/17 17:00 08/06/17 22:06 (Dulcolax Supp) 10 mg DAILY PRN RECTAL 08/06/17 17:00 (Lactulose Liq) 30 ml DAILY PRN PO 08/06/17 17:00 (CeleXA) 10 mg DAILY PO 08/07/17 15:00 08/09/17 08:57 (Lasix) 20 mg DAILY PO 08/07/17 15:00 08/09/17 08:56 (KCl) 10 meq DAILY PO 08/08/17 09:00 08/09/17 08:56 (Catapres) 0.1 mg Q6H PRN PO 08/07/17 15:00 08/07/17 16:53 (Pill Splitter) 1 ea UNSCH PRN OTHER 08/07/17 15:45 A/P Assessment and Plan 1. Status post Fall 2. Left Femoral Neck Fracture secondary to fall 08/06/17 with diagnosis of Intertrochanteric fracture of the left femur status post Close reduction with trochanteric nail fixation left proximal femur fracture by Doctor Ras Carl Okay to discharge from Orthopedic surgery standpoint. today is post operative day two, discharge to Rehab, weightbearing as tolerated, focus on ambulation, daily dressing changes, DC alix on 03/24 and follow with Doctor Meseret in 3 weeks. 3. Leukocytosis reactive no signs of infection. 4. Stage IV COPD on home oxygen, continue Bronchodilator, Mucolytic, incentive spirometry. 5. CVA by history 6. Chronic Tobacco dependence more than one pack daily strongly recommended to stop smoking 7. Hypertension Controlled. 8. Hyperlipidemia to continue home medicines. 9. Hypokalemia will follow potassium level in am tomorrow if not discharged. DVT prophylaxis with SCD for now. Chemical prophylaxis postoperatively. GI prophylaxis with ranitidine. Discharge Planning Discharge to SNF once Insurance acceptance Tyrell Alegre MD Aug 09, 2017 15:36
== END 2017-08-09 16:44 | DRG 482 ==
LOC: NEPC 14:20 → NEDA 17:40 → N06A 18:41
PROVIDERS: ADMIT Internal Medicine; ATTEND Internal Medicine
PROC: 0QS706Z Reposition Left Upper Femur with Intramedullary Internal Fixation Device, Open Approach (ICD-10-PCS; principal; 2017-08-06 14:58)
DX: S72.142A Displaced intertrochanteric fracture of left femur, initial encounter for closed fracture (principal); I50.9 Heart failure, unspecified; I11.0 Hypertensive heart disease with heart failure; Z99.81 Dependence on supplemental oxygen; J44.9 Chronic obstructive pulmonary disease, unspecified; M81.0 Age-related osteoporosis without current pathological fracture; M17.12 Unilateral primary osteoarthritis, left knee; E78.5 Hyperlipidemia, unspecified; D72.829 Elevated white blood cell count, unspecified; E87.6 Hypokalemia; K21.9 Gastro-esophageal reflux disease without esophagitis; E66.9 Obesity, unspecified; F17.210 Nicotine dependence, cigarettes, uncomplicated; Z66 Do not resuscitate; W01.0XXA Fall on same level from slipping, tripping and stumbling without subsequent striking against object, initial encounter; Y92.009 Unspecified place in unspecified non-institutional (private) residence as the place of occurrence of the external cause; Z86.73 Personal history of transient ischemic attack (TIA), and cerebral infarction without residual deficits; Z68.30 Body mass index [BMI] 30.0-30.9, adult
CPT/HCPCS: 70450; 71010; 73502; 73700; 76000; 80048; 81001; 83735; 84100; 85025; 85610; 93005; 99285; C1713; J0690; J1170; J1580; J2270; J2370; J7120